=== PATIENT | male | born 1960 | race Caucasian/White ===

== ENCOUNTER 2017-06-18 08:00 | Outpatient (CLI) | payer MEDICAID ==
[2017-06-18 18:50] LABS: BASOPHILS # (AUTO) 0.1 10^3/uL (0.0-0.1); BASOPHILS % (AUTO) 0.8 %; EOSINOPHILS # (AUTO) 0.2 10^3/uL (0.0-0.7); EOSINOPHILS % (AUTO) 2.6 %; HGB - HEMOGLOBIN 15.3 g/dL (14.0-18.0); LYMPHOCYTES # (AUTO) 1.8 10^3/uL (1.5-3.5); LYMPHOCYTES % (AUTO) 24.5 %; MEAN CORPUSCULAR HEMOGLOBIN 30.1 pg (27.0-31.0); MEAN CORPUSCULAR HGB CONC 34.1 g/dL (32.0-36.0); MEAN CORPUSCULAR VOLUME 88.3 fL (80.0-94.0); MEAN PLATELET VOLUME 9.8 fL (7.4-11.4); MONOCYTES # (AUTO) 0.5 10^3/uL (0.0-1.0); NEUTROPHILS # (AUTO) 4.8 10^3/uL (1.5-6.6); NEUTROPHILS % (AUTO) 65.1 %; PLT - PLATELET COUNT 211 10^3/uL (130-450); RED BLOOD COUNT 5.06 10^6/uL (4.70-6.10); RED CELL DISTRIBUTION WIDTH 12.9 % (12.0-15.0); WHITE BLOOD COUNT 7.3 x10^3/uL (4.8-10.8)
[2017-06-18 19:04] LABS: THYROID STIMULATING HORMONE 10.76 uIU/mL (0.34-5.60)
[2017-06-18 19:06] LABS: ALBUMIN 4.4 g/dL (3.2-5.5); ALBUMIN/GLOBULIN RATIO 1.5 (1.0-2.2); ALKALINE PHOSPHATASE 40 IU/L (42-121); ALT ALANINE AMINOTRANSFERASE 15 IU/L (10-60); AST ASPARTATE AMINOTRANSFERASE 17 IU/L (10-42); BILIRUBIN,TOTAL 0.6 mg/dL (0.2-1.0); BUN - BLOOD UREA NITROGEN 16 mg/dL (6-20); CALCIUM 9.1 mg/dL (8.5-10.3); CARBON DIOXIDE - CO2 28 mmol/L (21-32); CHLORIDE 103 mmol/L (101-111); CHOL/HDL RATIO 6.5 (<5.0); CHOLESTEROL 216 mg/dL; GFR - MDRD 77 (>89); GLUCOSE 88 mg/dL (70-100); HDL CHOLESTEROL 33 mg/dL; LDL CHOLESTEROL,CALCULATED 125 mg/dL; LDL/HDL RATIO 3.8 (<3.6); SODIUM 136 mmol/L (135-145); TOTAL PROTEIN 7.3 g/dL (6.7-8.2); VLDL CHOLESTEROL 58 mg/dL
[2017-06-18 20:39] LABS: FREE T4 (FREE THYROXINE) 0.66 ng/dL (0.58-1.64)
== END 2017-06-18 08:01 | disposition home or self-care (01) ==
LOC: LAB.S 08:00
PROVIDERS: ATTEND Nurse Practitioner Family
DX: R53.83 Other fatigue (principal); Z13.220 Encounter for screening for lipoid disorders; Z12.5 Encounter for screening for malignant neoplasm of prostate
CPT/HCPCS: 36415; 80050; 80061; 83721; 84153; 84439

== ENCOUNTER 2018-09-03 09:31 | Emergency (ER) | payer MEDICAID ==
[2018-09-03] MEDS ORDERED: SODIUM CHLORIDE 0.9% 1,000 ML IV ONE (10:35)
--- NOTE | 2018-09-03 10:39 | ED Physician Documentation ---
PD HPI FEVER - Stated complaint Stated Complaint: FEVER/WEIGHT LOSS - Chief complaint Chief Complaint: General - History obtained from History obtained from: Patient, Family - History of Present Illness Timing - onset: How many weeks ago (2) Timing duration: Weeks (2) Timing details: Gradual onset, Still present Associated symptoms: Chills, Sweats, Dry cough Contributing factors: No: Sick contact, Travel, Immunocompromised Similar symptoms before: Has not had sx before Recently seen: Not recently seen - Additional information Additional information: Previously well 57-year-old male has developed fever and sweats over the past 2 weeks. He describes nightly fever and drenching sweats. He has fatigue when he returns home from work he is well during the day and he does not have other specific symptoms. He denies any urinary symptoms he denies any shortness of breath he does have a slight cough which is nonproductive. He has lost 15lbs in 2 weeks. Review of Systems Constitutional: reports: Fever, Chills, Fatigue, Sweats Eyes: denies: Decreased vision Ears: denies: Ear pain Nose: denies: Rhinorrhea / runny nose, Congestion Throat: denies: Sore throat Cardiac: denies: Chest pain / pressure, Palpitations Respiratory: reports: Cough. denies: Dyspnea GI: denies: Abdominal Pain, Nausea, Vomiting, Constipation, Diarrhea : denies: Dysuria, Frequency Skin: denies: Rash Musculoskeletal: denies: Neck pain, Back pain, Extremity pain Neurologic: denies: Generalized weakness, Focal weakness, Numbness, Difficulty speaking PD PAST MEDICAL HISTORY - Present Medications Home Medications: Ambulatory Orders Medication Instructions Recorded Confirmed Azithromycin [Zithromax] 250 mg PO DAILY #6 tablet 09/03/18 - Allergies Allergies/Adverse Reactions: Allergies Allergy/AdvReac Type Severity Reaction Status Date / Time No Known Drug Allergies Allergy Verified 09/03/18 09:41 PD ED PE NORMAL - Vitals Vital signs reviewed: Yes (hypertensive ) - General General: Alert and oriented X 3, No acute distress, Well developed/nourished - HEENT HEENT: Atraumatic, PERRL, EOMI - Neck Neck: Supple, no meningeal sign, No bony TTP - Cardiac Cardiac: RRR, No murmur - Respiratory Respiratory: No respiratory distress, Clear bilaterally - Abdomen Abdomen: Soft, Non tender - Back Back: No CVA TTP, No spinal TTP - Derm Derm: Normal color, Warm and dry, No rash - Extremities Extremities: No deformity, No edema - Neuro Neuro: Alert and oriented X 3, 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, No motor deficit, No sensory deficit, Normal speech Motor: Obeys Commands Verbal: Oriented - Psych Psych: Normal mood, Normal affect Results - Vitals Vitals: Vital Signs - 24 hr 09/03/18 09:36 Temperature 37.2 C Heart Rate 81 Respiratory 14 Rate Blood Pressure 118/83 H O2 Saturation 98 Oxygen O2 Source Room air - Labs Labs: Laboratory Tests 09/03/18 09/03/18 09/03/18 10:46 10:46 10:46 WBC 11.5 H RBC 4.32 L Hgb 12.6 L Hct 38.9 L MCV 90.0 MCH 29.2 MCHC 32.4 RDW 12.4 Plt Count 327 MPV 9.4 Neut # (Auto) 8.2 H Lymph # (Auto) 1.5 [place] # (Auto) 1.2 H Eos # (Auto) 0.4 Baso # (Auto) 0.1 Absolute Nucleated RBC 0.00 Nucleated RBC % 0.0 Sodium 138 Potassium 4.6 Chloride 101 Carbon Dioxide 25 Anion Gap 12.0 BUN 22 H Creatinine 1.2 Estimated GFR (MDRD) 62 L Glucose 108 H Lactic Acid Calcium 9.0 Total Bilirubin 0.5 AST 27 ALT 25 Alkaline Phosphatase 46 Troponin I < 0.04 Total Protein 7.3 Albumin 3.4 Globulin 3.9 Albumin/Globulin Ratio 0.9 L Lipase 45 Urine Color Urine Clarity Urine pH Ur Specific [place] Urine Protein Urine Glucose (UA) Urine Ketones Urine Occult Blood Urine Nitrite Urine Bilirubin Urine Urobilinogen Ur Leukocyte Esterase Ur Microscopic Review Urine Culture Comments 09/03/18 09/03/18 11:00 11:45 WBC RBC Hgb Hct MCV MCH MCHC RDW Plt Count MPV Neut # (Auto) Lymph # (Auto) [place] # (Auto) Eos # (Auto) Baso # (Auto) Absolute Nucleated RBC Nucleated RBC % Sodium Potassium Chloride Carbon Dioxide Anion Gap BUN Creatinine Estimated GFR (MDRD) Glucose Lactic Acid 0.8 Calcium Total Bilirubin AST ALT Alkaline Phosphatase Troponin I Total Protein Albumin Globulin Albumin/Globulin Ratio Lipase Urine Color YELLOW Urine Clarity CLEAR Urine pH 5.5 Ur Specific [place] 1.010 Urine Protein NEGATIVE Urine Glucose (UA) NEGATIVE Urine Ketones NEGATIVE Urine Occult Blood NEGATIVE Urine Nitrite NEGATIVE Urine Bilirubin NEGATIVE Urine Urobilinogen 0.2 (NORMAL) Ur Leukocyte Esterase NEGATIVE Ur Microscopic Review NOT INDICATED Urine Culture Comments NOT INDICATED - Rads (name of study) chest Radiology: Prelim report reviewed (Impression: Left upper lobe and left lingular infiltrate.), EMP read indepedently, See rad report ct sinus Radiology: Prelim report reviewed (Impression: Normal sinus CT no sinusitis.), EMP read indepedently, See rad report Procedures - IVC sono (time) 1025 Bedside IVC sono: IVC measures (cm) (1.18), IVC collapsed c insp (cm) (complete), Dehydration (est 1 l iter deficit) PD MEDICAL DECISION MAKING - ED course Complexity details: reviewed results, re-evaluated patient, considered differential, d/w patient, d/w family ED course: 57-year-old male with a two-week history of fever and sweats with mild cough has pneumonia on his chest x-ray. He is administered Rocephin intravenously and will place him on some azithromycin. Departure - Departure Disposition: 01 Home, Self Care Clinical Impression: Pneumonia Qualifiers: Pneumonia type: due to unspecified organism Laterality: left Lung location: upper lobe of lung Qualified Code(s): J18.1 - Lobar pneumonia, unspecified organism Instructions: ED Pneumonia Adult Follow-Up: [facility] [Provider Group] Prescriptions: Azithromycin [Zithromax] 250 mg PO DAILY #6 tablet
[2018-09-03 10:58] LABS: BASOPHILS # (AUTO) 0.1 10^3/uL (0.0-0.1); BASOPHILS % (AUTO) 0.4 %; EOSINOPHILS # (AUTO) 0.4 10^3/uL (0.0-0.7); HGB - HEMOGLOBIN 12.6 g/dL (14.0-18.0); LYMPHOCYTES # (AUTO) 1.5 10^3/uL (1.5-3.5); MEAN CORPUSCULAR HEMOGLOBIN 29.2 pg (27.0-31.0); MEAN CORPUSCULAR HGB CONC 32.4 g/dL (32.0-36.0); MEAN PLATELET VOLUME 9.4 fL (7.4-11.4); MONOCYTES # (AUTO) 1.2 10^3/uL (0.0-1.0); MONOCYTES % (AUTO) 10.8 %; NEUTROPHILS # (AUTO) 8.2 10^3/uL (1.5-6.6); NEUTROPHILS % (AUTO) 71.8 %; PLT - PLATELET COUNT 327 10^3/uL (130-450); RED BLOOD COUNT 4.32 10^6/uL (4.70-6.10); RED CELL DISTRIBUTION WIDTH 12.4 % (12.0-15.0); WHITE BLOOD COUNT 11.5 x10^3/uL (4.8-10.8)
[2018-09-03 11:10] LABS: ALBUMIN 3.4 g/dL (3.2-5.5); ALBUMIN/GLOBULIN RATIO 0.9 (1.0-2.2); BILIRUBIN,TOTAL 0.5 mg/dL (0.2-1.0); CREATININE 1.2 mg/dL (0.6-1.2); TOTAL PROTEIN 7.3 g/dL (6.7-8.2)
--- NOTE | 2018-09-03 11:17 | XRAY Report ---
Reason: fever night sweats cough Procedure Date: 09/03/2018 Accession Number: [id number] / [id number] Procedure: XR - Chest 2 View X-Ray CPT Code: 00596 FULL RESULT: EXAM: CHEST RADIOGRAPHY EXAM DATE: 09/03/2018 11:02 AM. CLINICAL HISTORY: Fever night sweats cough. COMPARISON: None. TECHNIQUE: 2 views. FINDINGS: Lungs/Pleura: Left upper lobe and left lingular infiltrate.. No pleural effusion. No pneumothorax. Normal volumes. Mediastinum: Heart and mediastinal contours are unremarkable. Other: None. IMPRESSION: Left upper lobe and left lingular infiltrate. RADIA
[2018-09-03] MEDS ORDERED: cefTRIAXone 1 GM in SODIUM CHLORIDE 0.9% MINIBAG 100 ML IV STA (11:26)
[2018-09-03 11:45] LABS: BILIRUBIN,URINE NEGATIVE (NEGATIVE); GLUCOSE, URINE (UA) NEGATIVE (NEGATIVE); KETONES,URINE (UA) NEGATIVE (NEGATIVE); LEUKOCYTE ESTERASE, URINE NEGATIVE (NEGATIVE); NITRITE,URINE NEGATIVE (NEGATIVE); OCCULT BLOOD,URINE NEGATIVE (NEGATIVE); PH,URINE 5.5 PH (5.0-7.5); PROTEIN,URINE NEGATIVE (NEGATIVE); UROBILINOGEN,URINE 0.2 (NORMAL) E.U./dL (NORMAL)
[2018-09-03 11:46] LABS: CLARITY,URINE CLEAR (CLEAR)
--- NOTE | 2018-09-03 11:46 | CT Report ---
Reason: fever sweats cough persistent Procedure Date: 09/03/2018 Accession Number: [id number] / [id number] Procedure: CT - Sinuses CPT Code: FULL RESULT: EXAM: CT SINUS EXAM DATE: 09/03/2018 10:55 AM. HISTORY: Fever sweats cough persistent. COMPARISONS: None. TECHNIQUE: Routine multi-axial CT imaging performed through the sinuses. Iodinated IV contrast: None. Reconstructions: Multiplanar reformats. In accordance with CT protocol optimization, one or more of the following dose reduction techniques were utilized for this exam: automated exposure control, adjustment of mA and/or KV based on patient size, or use of iterative reconstructive technique. FINDINGS: RIGHT Frontal: Normal. Ethmoid: Normal. Maxillary: Normal. Sphenoid: Normal. Drainage Pathways: The frontal recess, ostiomeatal complex and sphenoethmoidal recess are patent and normal. LEFT Frontal: Normal. Ethmoid: Normal. Maxillary: Normal. Sphenoid: Normal. Drainage Pathways: The frontal recess, ostiomeatal complex and sphenoethmoidal recess are patent and normal. Nasal Cavity: Normal. No mass or significant anatomic abnormality evident. Osseous Structures: Bilateral sarah bullosa. Orbits: Unremarkable. Other: None. IMPRESSION: Normal Sinus CT. No sinusitis. RADIA
[2018-09-03 12:52] VITALS: BP 120/74
== END 2018-09-03 12:52 | disposition home or self-care (01) ==
LOC: ED 09:31
DX: J18.1 Lobar pneumonia, unspecified organism (principal)
CPT/HCPCS: 36415; 70486; 71046; 80053; 81001; 81003; 83605; 83690; 84484; 85025; 87040; 87086; 96361; 96365; 99283

== ENCOUNTER 2019-04-08 08:53 | Outpatient (CLI) | payer MEDICAID ==
[2019-04-08 17:32] LABS: BASOPHILS # (AUTO) 0.1 10^3/uL (0.0-0.1); BASOPHILS % (AUTO) 0.9 %; EOSINOPHILS # (AUTO) 0.3 10^3/uL (0.0-0.7); EOSINOPHILS % (AUTO) 4.4 %; HGB - HEMOGLOBIN 14.1 g/dL (14.0-18.0); LYMPHOCYTES # (AUTO) 1.9 10^3/uL (1.5-3.5); LYMPHOCYTES % (AUTO) 27.1 %; MEAN CORPUSCULAR HEMOGLOBIN 29.3 pg (27.0-31.0); MEAN CORPUSCULAR HGB CONC 31.5 g/dL (32.0-36.0); MEAN CORPUSCULAR VOLUME 92.7 fL (80.0-94.0); MEAN PLATELET VOLUME 11.4 fL (7.4-11.4); MONOCYTES # (AUTO) 0.5 10^3/uL (0.0-1.0); MONOCYTES % (AUTO) 7.7 %; NEUTROPHILS # (AUTO) 4.1 10^3/uL (1.5-6.6); NEUTROPHILS % (AUTO) 59.6 %; PLT - PLATELET COUNT 214 10^3/uL (130-450); RED BLOOD COUNT 4.82 10^6/uL (4.70-6.10); RED CELL DISTRIBUTION WIDTH 12.4 % (12.0-15.0); WHITE BLOOD COUNT 6.9 x10^3/uL (4.8-10.8)
[2019-04-08 17:59] LABS: HB2 TOTAL 13.9 g/dL; HEMOGLOBIN A1C 0.54 g/dL; HEMOGLOBIN A1C % 5.7 % (4.6-6.2)
[2019-04-08 18:00] LABS: ALBUMIN 4.2 g/dL (3.2-5.5); ALBUMIN/GLOBULIN RATIO 1.6 (1.0-2.2); BILIRUBIN,TOTAL 0.5 mg/dL (0.2-1.0); TOTAL PROTEIN 6.8 g/dL (6.7-8.2)
[2019-04-08 18:57] LABS: FREE T4 (FREE THYROXINE) 0.81 ng/dL (0.58-1.64)
== END 2019-04-08 08:54 | disposition home or self-care (01) ==
LOC: LAB.S 08:53
PROVIDERS: ATTEND Internal Medicine
DX: G62.9 Polyneuropathy, unspecified (principal); E03.9 Hypothyroidism, unspecified
CPT/HCPCS: 36415; 80050; 82607; 83036; 84439

== ENCOUNTER 2020-03-10 11:48 | Outpatient (CLI) | payer MEDICAID | END 2020-03-10 11:49 | disposition home or self-care (01) | LOC: COV 11:48 | PROVIDERS: ATTEND Family Medicine | DX: R50.9 Fever, unspecified (principal); M79.10 Myalgia, unspecified site; R53.83 Other fatigue; Z20.822 Contact with and (suspected) exposure to COVID-19 ==

== ENCOUNTER 2020-03-22 12:06 | Inpatient (IN) | payer MEDICAID ==
--- NOTE | 2020-03-22 12:37 | ED Physician Documentation ---
PD HPI ABD PAIN - Stated complaint Stated Complaint: ABD PX - Chief complaint Chief Complaint: Abd Pain - History obtained from History obtained from: Patient - Additional information Additional information: 59-year-old gentleman with history of hypothyroidism, otherwise quite healthy. Has never had a colonoscopy. He has had about 2 weeks of left lower quadrant pain feeling like he might be constipated. He has tried a number of at home reliefs including castor oil, other laxatives and even an enema without any relief. He is at this point has watery small stools but persistent pressure. Has been on and off nauseous and thinks he had a fever a week ago. No history of abdominal surgeries. No sick contacts. No respiratory complaints. Review of Systems Ten Systems: 10 systems reviewed and negative Constitutional: reports: Fever Cardiac: denies: Chest pain / pressure, Palpitations Respiratory: denies: Dyspnea, Cough PD PAST MEDICAL HISTORY - Present Medications Home Medications: Ambulatory Orders Medication Instructions Recorded Confirmed No Known Home Medications 03/22/20 03/22/20 - Allergies Allergies/Adverse Reactions: Allergies Allergy/AdvReac Type Severity Reaction Status Date / Time No Known Drug Allergies Allergy Verified 03/22/20 12:10 - Social History Does the pt smoke?: No Smoking Status: Never smoker PD ED PE NORMAL - Vitals Vital signs reviewed: Yes - General General: Alert and oriented X 3, No acute distress - HEENT HEENT: PERRL, EOMI - Neck Neck: Supple, no meningeal sign, No bony TTP - Cardiac Cardiac: RRR, No murmur - Respiratory Respiratory: No respiratory distress, Clear bilaterally - Abdomen Abdomen: Normal bowel sounds, Soft, Other (Focal tenderness in the left lower quadrant without guarding or rebound.) - Rectal Rectal: Other (Minimal stool in the vault, brown, nontender, prostate not enlarged) - Derm Derm: Normal color, Warm and dry - Extremities Extremities: No edema, No calf tenderness / cord - Neuro Neuro: Alert and oriented X 3, Normal speech Results - Vitals Vitals: Vital Signs - 24 hr 03/22/20 03/22/20 12:08 14:43 Temperature 36.4 C L Heart Rate 84 64 Respiratory 16 16 Rate Blood Pressure 129/84 H 130/75 O2 Saturation 99 98 Oxygen O2 Source Room air - Labs Labs: Microbiology 03/22/20 12:30 Occult Blood - Final Stool Laboratory Tests 03/22/20 03/22/20 03/22/20 12:25 12:45 12:45 WBC 14.7 H RBC 4.59 L Hgb 13.8 L Hct 41.5 L MCV 90.4 MCH 30.1 MCHC 33.3 RDW 11.5 L Plt Count 332 MPV 10.2 Neut # (Auto) 11.8 H Lymph # (Auto) 1.5 [place] # (Auto) 1.2 H Eos # (Auto) 0.1 Baso # (Auto) 0.1 Absolute Nucleated RBC 0.00 Nucleated RBC % 0.0 Sodium 137 Potassium 4.4 Chloride 99 L Carbon Dioxide 24 Anion Gap 14.0 H BUN 18 Creatinine 1.1 Estimated GFR (MDRD) 68 L Glucose 101 H Calcium 9.6 Total Bilirubin 0.8 AST 13 ALT 10 Alkaline Phosphatase 60 Total Protein 8.0 Albumin 3.9 Globulin 4.1 Albumin/Globulin Ratio 1.0 Lipase 28 TSH Urine Color YELLOW Urine Clarity CLEAR Urine pH 5.5 Ur Specific [place] 1.015 Urine Protein NEGATIVE Urine Glucose (UA) NEGATIVE Urine Ketones NEGATIVE Urine Occult Blood TRACE-LYSE Urine Nitrite NEGATIVE Urine Bilirubin NEGATIVE Urine Urobilinogen 0.2 (NORMAL) Ur Leukocyte Esterase NEGATIVE Ur Microscopic Review NOT INDICATED Urine Culture Comments NOT INDICATED 03/22/20 12:45 WBC RBC Hgb Hct MCV MCH MCHC RDW Plt Count MPV Neut # (Auto) Lymph # (Auto) [place] # (Auto) Eos # (Auto) Baso # (Auto) Absolute Nucleated RBC Nucleated RBC % Sodium Potassium Chloride Carbon Dioxide Anion Gap BUN Creatinine Estimated GFR (MDRD) Glucose Calcium Total Bilirubin AST ALT Alkaline Phosphatase Total Protein Albumin Globulin Albumin/Globulin Ratio Lipase TSH 11.82 H Urine Color Urine Clarity Urine pH Ur Specific [place] Urine Protein Urine Glucose (UA) Urine Ketones Urine Occult Blood Urine Nitrite Urine Bilirubin Urine Urobilinogen Ur Leukocyte Esterase Ur Microscopic Review Urine Culture Comments PD MEDICAL DECISION MAKING - ED course ED course: [employer] respiratory panel ordered to rapidly test specifically for COVID-19 in this patient who is expected to be hospitalized Patient constipation for 2 weeks, some tenderness in left lower quadrant. No stool in rectal vault on exam. CT showing 5.6 cm diverticular abscess. I spoke with the radiologist here, Dr. Martinez about whether this would be amenable to interventional drainage and he felt that there was not a good window for that. Dr. Colmenares our surgeon is seeing him. He received some Zosyn in the department. Departure - Departure Disposition: 66 [facility] DC/Xfer Clinical Impression: Diverticular disease of intestine with perforation and abscess Condition: Stable
[2020-03-22 12:47] LABS: BILIRUBIN,URINE NEGATIVE (NEGATIVE); GLUCOSE, URINE (UA) NEGATIVE (NEGATIVE); KETONES,URINE (UA) NEGATIVE (NEGATIVE); LEUKOCYTE ESTERASE, URINE NEGATIVE (NEGATIVE); NITRITE,URINE NEGATIVE (NEGATIVE); OCCULT BLOOD,URINE TRACE-LYSE (NEGATIVE); PH,URINE 5.5 PH (5.0-7.5); PROTEIN,URINE NEGATIVE (NEGATIVE); UROBILINOGEN,URINE 0.2 (NORMAL) E.U./dL (NORMAL)
[2020-03-22 12:49] LABS: CLARITY,URINE CLEAR (CLEAR)
[2020-03-22 12:50] LABS: BASOPHILS # (AUTO) 0.1 10^3/uL (0.0-0.1); BASOPHILS % (AUTO) 0.5 %; EOSINOPHILS # (AUTO) 0.1 10^3/uL (0.0-0.7); EOSINOPHILS % (AUTO) 0.6 %; HGB - HEMOGLOBIN 13.8 g/dL (14.0-18.0); LYMPHOCYTES # (AUTO) 1.5 10^3/uL (1.5-3.5); LYMPHOCYTES % (AUTO) 10.4 %; MEAN CORPUSCULAR HEMOGLOBIN 30.1 pg (27.0-31.0); MEAN CORPUSCULAR HGB CONC 33.3 g/dL (32.0-36.0); MEAN CORPUSCULAR VOLUME 90.4 fL (80.0-94.0); MEAN PLATELET VOLUME 10.2 fL (7.4-11.4); MONOCYTES # (AUTO) 1.2 10^3/uL (0.0-1.0); NEUTROPHILS # (AUTO) 11.8 10^3/uL (1.5-6.6); NEUTROPHILS % (AUTO) 80.2 %; PLT - PLATELET COUNT 332 10^3/uL (130-450); RED BLOOD COUNT 4.59 10^6/uL (4.70-6.10); RED CELL DISTRIBUTION WIDTH 11.5 % (12.0-15.0); WHITE BLOOD COUNT 14.7 x10^3/uL (4.8-10.8)
[2020-03-22] MEDS ORDERED: IOVERSOL 320 100 ML VIAL IVP ONE ×2 (12:54→14:19)
[2020-03-22] MEDS ORDERED: IOVERSOL 320 50 ML VIAL ONE (12:54)
[2020-03-22 13:12] LABS: ALBUMIN 3.9 g/dL (3.2-5.5); BILIRUBIN,TOTAL 0.8 mg/dL (0.2-1.0); CALCIUM 9.6 mg/dL (8.5-10.3); CREATININE 1.1 mg/dL (0.6-1.2)
[2020-03-22] MEDS ORDERED: PIPERACILLIN/TAZOBACTAM 4.5 GM in SODIUM CHLORIDE 0.9% MINIBAG 100 ML IV STA (14:17)
[2020-03-22] MEDS ORDERED: IOVERSOL 320 50 ML VIAL PO ONE (14:18)
--- NOTE | 2020-03-22 14:26 | CT Report ---
PROCEDURE: Abdomen/Pelvis W INDICATIONS: IV and PO LLq pain CONTRAST: IV CONTRAST: Optiray 320 ml: 100 PO CONTRAST: Optiray 320 ml50 TECHNIQUE: After the administration of intravenous and oral contrast, 5 mm thick sections acquired from the diap hragms to the symphysis. 5 mm thick coronal and sagittal reformats were acquired. For radiation dos e reduction, the following was used: automated exposure control, adjustment of mA and/or kV accordin g to patient size. COMPARISON: None. FINDINGS: Image quality: Excellent. ABDOMEN: Lung bases: Lung bases are clear. Heart size is normal. Solid organs: Liver and spleen are normal in size and enhancement. Small hepatic cyst noted. Punctat e calcification compatible sequela prior granulomatous disease noted in the right lobe of liver. Gall bladder is within normal limits. Biliary system is non dilated. Pancreas enhances normally. No adr enal nodules. Kidneys demonstrate normal size and enhancement, without hydronephrosis. I millimeter maximum calcification seen adjacent to the distal aspect of the right ureter may represent nonobstruc ting stone or phlebolith. Peritoneum and bowel: The appendix is normal. Scattered diverticuli noted in the left colon and sigmo id colon. Inflammatory changes and circumferential wall thickening involving the mid sigmoid colon co mpatible with diverticulitis. There is a 5.6 cm diameter fluid collection with partial peripheral enh ancement adjacent to the sigmoid colon in the region of diverticulitis compatible with early peridive rticular abscess. Nodes and vessels: No retroperitoneal or mesenteric adenopathy by size criteria. Aorta and inferior vena cava are normal in size. Miscellaneous: No ventral hernias. PELVIS: Genitourinary: Bladder wall thickness is normal. Miscellaneous: No inguinal hernias or adenopathy. Bones: No suspicious bony lesions. No vertebral body compression fractures. Spine degenerative disc disease and facet arthropathy are noted. IMPRESSION: Sigmoid colon diverticulitis with 5.6 cm peridiverticular abscess. Reviewed by: Radha Sanz MD, PhD on 03/22/2020 1:24 PM [facility] Approved by: Radha Sanz MD, PhD on 03/22/2020 1:24 PM [facility] Station ID: [id number]
[2020-03-22 15:56] LABS: C. PNEUMONIAE- RESP PCR PANEL NOT DETECTED
--- NOTE | 2020-03-22 16:30 | HISTORY & PHYSICAL EXAMINATION ---
HPI - Admitted From Admitted from: ED - History Obtained From Records Reviewed: Other (Physicians notes) History obtained from: Patient Exam limitations: No limitations - History of Present Illness Severity at the worst: reports: Mild Pain Quality: reports: Aching Context-Pain started w/: reports: Rest Timing: reports: Gradual onset Duration: reports: Days: (About 14) Improved with: reports: Home medication Worsened by: reports: Nothing HPI Comment/Other: 59-year-old gentleman with history of hypothyroidism, otherwise quite healthy. Has never had a colonoscopy. He has had about 2 weeks of left lower quadrant pain feeling like he might be constipated. He has tried a number of at home reliefs including castor oil, other laxatives and even an enema without any relief. He is at this point has watery small stools but persistent pressure. Has been on and off nauseous and thinks he had a fever a week ago. No history of abdominal surgeries. No sick contacts. No respiratory complaints. Says he doesn't feel "terrible" but is definitely not "myself". He has never been diagnosed with diverticulosis or diverticulitis. He has not had a similar episode in the past. He has known family history of colon cancer or inflammatory bowel disease. PMH/PSH - Past Medical History Respiratory: positive: Pneumonia Endocrine/Autoimmune: positive: HyPOthyroidism Social & Family Hx - Social History Does the pt smoke?: No Smoking Status: Never smoker Does the pt drink ETOH?: Yes Does the pt have substance abuse?: No Meds/Allgy - Home Medications Home Medications: Ambulatory Orders Medication Instructions Recorded Confirmed Levothyroxine [Synthroid] 75 mcg PO DAILY 03/22/20 03/22/20 - Allergies Allergies/Adverse Reactions: Allergies Allergy/AdvReac Type Severity Reaction Status Date / Time No Known Drug Allergies Allergy Verified 03/22/20 12:10 Review of Systems - Constitutional Constitutional: reports: Malaise (Mild), Poor appetite. denies: Fatigue, Fever, Chills, Weakness - Eyes Eyes: denies: Pain, Irritation - Ears, Nose & Throat Ears, Nose & Throat: denies: Tinnitus, Vertigo - Cardiovascular Cariovascular: denies: Irregular heart rate, Palpitations, Chest pain, Edema, Lightheadedness - Respiratory Respiratory: denies: Cough, Sputum production, Wheezing - Gastrointestinal Gastrointestinal: reports: Abdominal pain, Constipation, Diarrhea, Change in bowel habits, Nausea. denies: Abdominal distention, Rectal bleeding, Black stools, Bloody stools, Vomiting - Genitourinary Genitourinary: denies: Dysuria, Frequency - Musculoskeletal Musculoskeletal: reports: Stiffness - Integumentary Integumentary: denies: Rash - Neurological Neurological: denies: Focal weakness - Hematologic/Lymphatic Hematologic/Lymphatic: denies: Anemia, Bruising - All Other Systems All Other Systems: reports: Reviewed and negative Exam - Vital Signs Reviewed Vital Signs: Yes Vital Signs: Vital Signs x48h Temp Pulse Resp BP Pulse Ox 03/22/20 16:07 65 16 137/85 H 100 03/22/20 14:43 64 16 130/75 98 03/22/20 12:08 36.4 C L 84 16 129/84 H 99 - Physical Exam General Appearance: positive: No acute distress, Alert Eyes Bilateral: positive: Normal inspection, PERRL, EOMI ENT: positive: ENT inspection nml, Pharynx nml, No signs of dehydration Neck: positive: Nml inspection, Thyroid nml, No JVD Respiratory: positive: Chest non-tender, No respiratory distress, Breath sounds nml Cardiovascular: positive: Regular rate & rhythm, No murmur Peripheral Pulses: positive: 1+ Abdomen: positive: Nml bowel sounds, Tenderness (Mild tenderness in the suprapubic region). negative: Guarding, Rebound Back: negative: CVA tenderness (R), CVA tenderness (L) Skin: positive: Color nml Extremities: positive: Non-tender, Full ROM, Nml appearance Neurologic/Psychiatric: positive: Oriented x3 Results - Lab Results Fish Bones: 03/22/20 12:45 03/22/20 12:45 Other Lab Results: Lab Results x24hrs 03/22/20 03/22/20 03/22/20 Range/Units 14:40 12:45 12:45 WBC (4.8-10.8) x10^3/uL RBC (4.70-6.10) 10^6/uL Hgb (14.0-18.0) g/dL Hct (42.0-52.0) % MCV (80.0-94.0) fL MCH (27.0-31.0) pg MCHC (32.0-36.0) g/dL RDW (12.0-15.0) % Plt Count (130-450) 10^3/uL MPV (7.4-11.4) fL Neut # (Auto) (1.5-6.6) 10^3/uL Lymph # (Auto) (1.5-3.5) 10^3/uL [place] # (Auto) (0.0-1.0) 10^3/uL Eos # (Auto) (0.0-0.7) 10^3/uL Baso # (Auto) (0.0-0.1) 10^3/uL Absolute Nucleated RBC x10^3/uL Nucleated RBC % /100WBC Sodium 137 (135-145) mmol/L Potassium 4.4 (3.5-5.0) mmol/L Chloride 99 L (101-111) mmol/L Carbon Dioxide 24 (21-32) mmol/L Anion Gap 14.0 H (6-13) BUN 18 (6-20) mg/dL Creatinine 1.1 (0.6-1.2) mg/dL Estimated GFR (MDRD) 68 L (>89) Glucose 101 H (70-100) mg/dL Calcium 9.6 (8.5-10.3) mg/dL Total Bilirubin 0.8 (0.2-1.0) mg/dL AST 13 (10-42) IU/L ALT 10 (10-60) IU/L Alkaline Phosphatase 60 (42-121) IU/L Total Protein 8.0 (6.7-8.2) g/dL Albumin 3.9 (3.2-5.5) g/dL Globulin 4.1 (2.1-4.2) g/dL Albumin/Globulin Ratio 1.0 (1.0-2.2) Lipase 28 (22-51) U/L TSH 11.82 H (0.34-5.60) uIU/mL Urine Color Urine Clarity (CLEAR) Urine pH (5.0-7.5) PH Ur Specific [place] (1.002-1.030) Urine Protein (NEGATIVE) mg/dL Urine Glucose (UA) (NEGATIVE) mg/dL Urine Ketones (NEGATIVE) mg/dL Urine Occult Blood (NEGATIVE) Urine Nitrite (NEGATIVE) Urine Bilirubin (NEGATIVE) Urine Urobilinogen (NORMAL) E.U./dL Ur Leukocyte Esterase (NEGATIVE) Ur Microscopic Review Urine Culture Comments Nasal Adenovirus (PCR) NOT DETECTED Nasal B. parapertussis DNA (PCR) NOT DETECTED Nasal Coronavir 229E PCR NOT DETECTED Nasal Coronavir HKU1 PCR NOT DETECTED Nasal Coronavir NL63 PCR NOT DETECTED Nasal Coronavir OC43 PCR NOT DETECTED Nasal Enterovir/Rhinovir PCR NOT DETECTED Nasal Influenza B PCR NOT DETECTED Nasal Influenza A PCR NOT DETECTED Nasal Parainfluen 1 PCR NOT DETECTED Nasal Parainfluen 2 PCR NOT DETECTED Nasal Parainfluen 3 PCR NOT DETECTED Nasal Parainfluen 4 PCR NOT DETECTED Nasal RSV (PCR) NOT DETECTED Nasal B.pertussis DNA PCR NOT DETECTED Nasal C.pneumoniae (PCR) NOT DETECTED [place] Human Metapneumo PCR NOT DETECTED Nasal M.pneumoniae (PCR) NOT DETECTED Nasal SARS-CoV-2 (PCR) NOT DETECTED 03/22/20 03/22/20 Range/Units 12:45 12:25 WBC 14.7 H (4.8-10.8) x10^3/uL RBC 4.59 L (4.70-6.10) 10^6/uL Hgb 13.8 L (14.0-18.0) g/dL Hct 41.5 L (42.0-52.0) % MCV 90.4 (80.0-94.0) fL MCH 30.1 (27.0-31.0) pg MCHC 33.3 (32.0-36.0) g/dL RDW 11.5 L (12.0-15.0) % Plt Count 332 (130-450) 10^3/uL MPV 10.2 (7.4-11.4) fL Neut # (Auto) 11.8 H (1.5-6.6) 10^3/uL Lymph # (Auto) 1.5 (1.5-3.5) 10^3/uL [place] # (Auto) 1.2 H (0.0-1.0) 10^3/uL Eos # (Auto) 0.1 (0.0-0.7) 10^3/uL Baso # (Auto) 0.1 (0.0-0.1) 10^3/uL Absolute Nucleated RBC 0.00 x10^3/uL Nucleated RBC % 0.0 /100WBC Sodium (135-145) mmol/L Potassium (3.5-5.0) mmol/L Chloride (101-111) mmol/L Carbon Dioxide (21-32) mmol/L Anion Gap (6-13) BUN (6-20) mg/dL Creatinine (0.6-1.2) mg/dL Estimated GFR (MDRD) (>89) Glucose (70-100) mg/dL Calcium (8.5-10.3) mg/dL Total Bilirubin (0.2-1.0) mg/dL AST (10-42) IU/L ALT (10-60) IU/L Alkaline Phosphatase (42-121) IU/L Total Protein (6.7-8.2) g/dL Albumin (3.2-5.5) g/dL Globulin (2.1-4.2) g/dL Albumin/Globulin Ratio (1.0-2.2) Lipase (22-51) U/L TSH (0.34-5.60) uIU/mL Urine Color YELLOW Urine Clarity CLEAR (CLEAR) Urine pH 5.5 (5.0-7.5) PH Ur Specific [place] 1.015 (1.002-1.030) Urine Protein NEGATIVE (NEGATIVE) mg/dL Urine Glucose (UA) NEGATIVE (NEGATIVE) mg/dL Urine Ketones NEGATIVE (NEGATIVE) mg/dL Urine Occult Blood TRACE-LYSE (NEGATIVE) Urine Nitrite NEGATIVE (NEGATIVE) Urine Bilirubin NEGATIVE (NEGATIVE) Urine Urobilinogen 0.2 (NORMAL) (NORMAL) E.U./dL Ur Leukocyte Esterase NEGATIVE (NEGATIVE) Ur Microscopic Review NOT INDICATED Urine Culture Comments NOT INDICATED Nasal Adenovirus (PCR) Nasal B. parapertussis DNA (PCR) Nasal Coronavir 229E PCR Nasal Coronavir HKU1 PCR Nasal Coronavir NL63 PCR Nasal Coronavir OC43 PCR Nasal Enterovir/Rhinovir PCR Nasal Influenza B PCR Nasal Influenza A PCR Nasal Parainfluen 1 PCR Nasal Parainfluen 2 PCR Nasal Parainfluen 3 PCR Nasal Parainfluen 4 PCR Nasal RSV (PCR) Nasal B.pertussis DNA PCR Nasal C.pneumoniae (PCR) [place] Human Metapneumo PCR Nasal M.pneumoniae (PCR) Nasal SARS-CoV-2 (PCR) - Diagnostic Imaging Results Diagnostic Imaging Results: positive: Final report reviewed Diagnostic Imaging Results Comments: IMPRESSION: Sigmoid colon diverticulitis with 5.6 cm peridiverticular abscess. Reviewed by: Radha Sanz MD, PhD on 03/22/2020 1:24 PM [facility] Approved by: Radha Sanz MD, PhD on 03/22/2020 1:24 PM [facility] - Other Other Results/Comments: I discussed the CT with the radiologist. He reports this abscess is not amenable to image guided drainage as it is surround by loops of bowel Impression/Plan - Problem List Problem List: Diverticulitis with 5.2 cm diverticular abscess. As this abscess is not accessible by less invasive technique, I have recommended laparoscopy with drain placement and IV antibiotic therapy followed, in several weeks, by colonoscopy. We have discussed the risks and benefits of the procedure and the patient has expressed a desire to proceed.
--- NOTE | 2020-03-22 20:06 | ANESTHESIA ---
Pre-Anesthesia VS, & Labs - Diagnosis intra-abdominal abcess - Procedure diagnostic laparoscopy Vital Signs: Temp Pulse Resp BP Pulse Ox 36.4 C L 62 18 135/79 H 96 03/22/20 12:08 03/22/20 19:05 03/22/20 19:05 03/22/20 19:05 03/22/20 19:05 Height: 6 ft 3 in Weight (kg): 88.451 kg Body Mass Index: 24.3 BMI Classification: Healthy weight - NPO >8 hours - Lab Results Current Lab Results: Laboratory Tests 03/22/20 12:45: TSH 11.82 H 03/22/20 12:45: Sodium 137, Potassium 4.4, Chloride 99 L, Carbon Dioxide 24, Anion Gap 14.0 H, BUN 18, Creatinine 1.1, Estimated GFR (MDRD) 68 L, Glucose 101 H, Calcium 9.6, Total Bilirubin 0.8, AST 13, ALT 10, Alkaline Phosphatase 60, Total Protein 8.0, Albumin 3.9, Globulin 4.1, Albumin/Globulin Ratio 1.0, Lipase 28 03/22/20 12:45: WBC 14.7 H, RBC 4.59 L, Hgb 13.8 L, Hct 41.5 L, MCV 90.4, MCH 30.1, MCHC 33.3, RDW 11.5 L, Plt Count 332, MPV 10.2, Neut # (Auto) 11.8 H, Lymph # (Auto) 1.5, [place] # (Auto) 1.2 H, Eos # (Auto) 0.1, Baso # (Auto) 0.1, Absolute Nucleated RBC 0.00, Nucleated RBC % 0.0 Lab results reviewed: Yes Fish Bones: 03/22/20 12:45 03/22/20 12:45 Home Medications and Allergies Home Medications: Ambulatory Orders Levothyroxine [Synthroid] 75 mcg PO DAILY 03/22/20 Levothyroxine [Synthroid] 75 mcg PO DAILY 03/22/20 Allergies/Adverse Reactions: Allergies Allergy/AdvReac Type Severity Reaction Status Date / Time No Known Drug Allergies Allergy Verified 03/22/20 12:10 Anes History & Medical History - Anesthetic History Anesthesia Complications: reports: No previous complications - Medical History Cardiovascular: reports: None Pulmonary: reports: Pneumonia Endocrine/Autoimmune: reports: HyPOthyroidism Smoking Status: Never smoker History of Cancer?: No Exam General: Alert, Oriented x3 Dental: WNL Mouth Opening: Greater than 4 Fingerbreadths Neck Mobility: Normal Mallampati classification: I Thyromental Distance: greater than 6 cm Respiratory: Lungs clear Cardiovascular: Regular rate Plan Anesthesia Type: General, Transverse Abdominis Plane (TAP) Block (if open procedure) Consent for Procedure(s) Verified and Reviewed: Yes Code Status: Attempt Resuscitation ASA classification: 2-Mild systemic disease Is this case an emergency?: Yes
[2020-03-22] MEDS ORDERED: BUPIVACAINE 0.5% PF 30 ML VIAL INFIL ONE ×2 (20:08→21:15)
[2020-03-22] MEDS ORDERED: LIDOCAINE MPF 2%-EPI 1:200000 20 ML VIAL SUBQ ONE ×2 (20:09→21:15)
[2020-03-22] MEDS ORDERED: BUPIVACAINE 0.5% PF 30 ML VIAL ONE (20:13)
[2020-03-22] MEDS ORDERED: LIDOCAINE 2%-EPI 1:100000 20 ML MDV ONE (20:13)
[2020-03-22] MEDS ORDERED: LIDOCAINE-MPF 2% 5 ML VIAL ONE (20:34)
[2020-03-22] MEDS ORDERED: fentaNYL 100 MCG/2 ML VIAL ONE ×2 (20:34→22:18)
[2020-03-22] MEDS ORDERED: MIDAZOLAM 2 MG/2 ML VIAL ONE (20:34)
[2020-03-22] MEDS ORDERED: PROPOFOL 200 MG/20 ML VIAL IVP ONE ×2 (20:34→21:12)
[2020-03-22] MEDS ORDERED: ROCURONIUM 50 MG/5 ML VIAL ONE (20:34)
[2020-03-22] MEDS ORDERED: DEXAMETHASONE 4 MG/ML VIAL ONE (21:10)
[2020-03-22] MEDS ORDERED: KETOROLAC 30 MG/ML VIAL ONE (21:10)
[2020-03-22] MEDS ORDERED: ONDANSETRON 4 MG/2 ML VIAL ONE (21:10)
[2020-03-22] MEDS ORDERED: NALOXONE 0.4 MG/ML VIAL IVP PRN (21:24)
[2020-03-22] MEDS ORDERED: ePHEDrine 50 MG/ML VIAL IVP PRN (21:24)
[2020-03-22] MEDS ORDERED: ONDANSETRON 4 MG/2 ML VIAL IVP PRN ×2 (21:24→21:41)
[2020-03-22] MEDS ORDERED: MORPHINE 2 MG/ML CARPUJECT IVP PRN (21:24)
[2020-03-22] MEDS ORDERED: fentaNYL 100 MCG/2 ML VIAL IVP PRN (21:24)
[2020-03-22] MEDS ORDERED: HYDROmorphone 0.5 MG/0.5 ML SYRINGE IVP PRN ×2 (21:24→21:47)
[2020-03-22] MEDS ORDERED: METOCLOPRAMIDE 10 MG/2 ML VIAL IVP PRN (21:24)
[2020-03-22] MEDS ORDERED: ATROPINE ABBOJECT 1 MG/10 ML SYRINGE IVP PRN (21:24)
[2020-03-22] MEDS ORDERED: ACETAMINOPHEN 1,000 MG/100 ML 100 ML IV ONE (21:27)
--- NOTE | 2020-03-22 21:34 | OPERATIVE REPORT ---
Operative Report - General Procedure Date: 03/22/20 Planned Procedure: Laparoscopy with drainage of pelvic abscess Pre-Op Diagnosis: Diverticular pelvic abscess not amenable to image guided drainage Procedure Performed: Laparoscopy with lysis of adhesions and drainage of pelvic abscess Post Op Diagnosis: Diverticular abscess with associated pelvic phlegmon - Procedure Note Primary Surgeon: Darrian Anesthesia Provider: SUPRIYA Dominguez Anesthesia Technique: General ET tube, Local Pathology: Culture of intraperitoneal abscess Estimated Blood Loss (mL): 10 Drain/Tube Type: Avinash drain (19 Congolese Avinash drain in the pelvic abscess cavity) Findings: Pelvic phlegmon with dense omental adhesions Frankly purulent abscess contents. No evidence of free perforation of stool Complications: None apparent - Other Other Information/Narrative: After obtaining informed consent, the patient is brought to the operating room placed in the supine position on the operating table. Following successful induction of general endotracheal anesthesia, appropriate padding of all bony prominences, and placement of appropriate monitors, the abdomen was prepped and draped in the standard surgical fashion. A timeout was held per scope protocol. All elements of the surgical safety checklist were followed before, during, and after the procedure. Following infiltration with local anesthetic create a field block, an incision was created superior to the umbilicus and carried down through the skin and subcutaneous tissue. The abdomen was entered directly using a 15 blade scalpel. A 12 mm blunt Arana balloon trocar was placed in the abdominal cavity and it was insufflated to 15 mils mercury pressure.2 more trochars were placed in the right upper and left upper quadrants. The pelvis was visualized as well as an associated large phlegmon and omental attachments. The omentum was carefully peeled from the top of the phlegmon. This required painstaking use of the LigaS ure device to avoid tearing any of the bowel that the omentum was attached to. Significant lysis of adhesions was required just to identify the planes between the bowel loops so that they might be entered to provide access to the abscess cavity. No attempt was made to separate all of the bowel loops completely due to the risk of bowel injury in this inflammatory field. Using a blunt probe, the edges of the bowel loops were very gently allowing window of access into the abscess cavity that was carefully developed medially for a complete distance of approximately 3 cm. The skin directly over this area in the pelvis was anesthetized with local anesthetic and a 19 Congolese Avinash drain was passed through this area and down into the abdominal cavity. This drain was fed into the abscess cavity and then sewn into place in the abdominal wall. The contents of the abscess cavity were then aspirated through the drain and sent for culture. The cavity was then irrigated with warm saline solution and aspirated free of all fluid and particulate matter. It is notable that it was frankly necrotic and very foul-smelling.The abdomen was then irrigated with approximately 1 L of warm saline. It was aspirated free of all fluid and particulate matter. The entire wound was checked for hemostasis. When we were satisfied that all was clean and dry, the trochars were removed under direct vision. The abdomen desufflated and the camera removed. The umbilical incision was reapproximated with 0 Vicryl sutures and nylon sutures were placed in all of the skin incisions. All sponge, needle, and instrument counts were correct at the conclusion of the case. The patient was allowed to wake from anesthesia without difficulty and taken to the postanesthesia care unit in good condition.
[2020-03-22] MEDS ORDERED: GLYCOPYRROLATE 1 MG/5 ML VIAL ONE (21:40)
[2020-03-22] MEDS ORDERED: NEOSTIGMINE 1 MG/1 ML 10 ML MDV ONE (21:40)
[2020-03-22] MEDS ORDERED: oxyCODONE 5 MG TABLET PO PRN (21:41)
[2020-03-22] MEDS ORDERED: LACTATED RINGERS 400 ML IV ONE (21:44)
[2020-03-22] MEDS ORDERED: ACETAMINOPHEN 325 MG TABLET PO SCH (22:00)
[2020-03-22] MEDS ORDERED: PIPERACILLIN/TAZOBACTAM 3.375 GM in SODIUM CHLORIDE 0.9% MINIBAG 100 ML IV SCH (22:00)
[2020-03-22] MEDS ORDERED: SODIUM CHLORIDE 0.9% 1,000 ML IV SCH (22:00)
[2020-03-22] MEDS ORDERED: LACTATED RINGERS 1,000 ML IV SCH (22:00)
--- NOTE | 2020-03-22 22:16 | ANESTHESIA POST OP EVALUATION ---
Anesthesia Post Eval - Post Anesthesia Eval Vitals: Last Vital Signs Temp 36.4 C L 03/22/20 22:15 Pulse 56 L 03/22/20 22:15 Resp 16 03/22/20 22:15 BP 141/93 H 03/22/20 22:15 Pulse Ox 100 03/22/20 22:15 CV Function Including HR & BP: positive: Stable Pain Control: positive: Satisfactory Nausea & Vomiting: positive: Negative Mental Status: positive: Patient Participates Respiratory Status: Airway Patent Hydration Status: Satisfactory Anesthesia Complications: positive: None
[2020-03-22] MEDS: LACTATED RINGERS 1,000 ML IV SCH (22:39)
[2020-03-23] MEDS: ACETAMINOPHEN 325 MG TABLET PO SCH ×6 (00:19→21:06)
[2020-03-23] MEDS: PIPERACILLIN/TAZOBACTAM 3.375 GM in SODIUM CHLORIDE 0.9% MINIBAG 100 ML IV SCH ×3 (02:52→19:26)
[2020-03-23 06:02] LABS: BASOPHILS % (AUTO) 0.2 %; EOSINOPHILS # (AUTO) 0.1 10^3/uL (0.0-0.7); EOSINOPHILS % (AUTO) 0.5 %; HGB - HEMOGLOBIN 12.8 g/dL (14.0-18.0); LYMPHOCYTES # (AUTO) 0.6 10^3/uL (1.5-3.5); LYMPHOCYTES % (AUTO) 3.9 %; MEAN CORPUSCULAR HEMOGLOBIN 29.9 pg (27.0-31.0); MEAN CORPUSCULAR HGB CONC 32.6 g/dL (32.0-36.0); MEAN CORPUSCULAR VOLUME 91.8 fL (80.0-94.0); MEAN PLATELET VOLUME 10.4 fL (7.4-11.4); MONOCYTES # (AUTO) 0.7 10^3/uL (0.0-1.0); MONOCYTES % (AUTO) 4.6 %; NEUTROPHILS # (AUTO) 14.5 10^3/uL (1.5-6.6); NEUTROPHILS % (AUTO) 90.4 %; PLT - PLATELET COUNT 336 10^3/uL (130-450); RED BLOOD COUNT 4.28 10^6/uL (4.70-6.10); RED CELL DISTRIBUTION WIDTH 11.5 % (12.0-15.0); WHITE BLOOD COUNT 16.1 x10^3/uL (4.8-10.8)
[2020-03-23] MEDS: PANTOPRAZOLE 40 MG TABLET PO SCH (06:02)
[2020-03-23 06:14] LABS: ALBUMIN 3.2 g/dL (3.2-5.5); ALBUMIN/GLOBULIN RATIO 0.9 (1.0-2.2); ALKALINE PHOSPHATASE 48 IU/L (42-121); ALT ALANINE AMINOTRANSFERASE < 10 IU/L (10-60); AST ASPARTATE AMINOTRANSFERASE 12 IU/L (10-42); BILIRUBIN,TOTAL 0.8 mg/dL (0.2-1.0); BUN - BLOOD UREA NITROGEN 24 mg/dL (6-20); CALCIUM 8.5 mg/dL (8.5-10.3); CARBON DIOXIDE - CO2 22 mmol/L (21-32); CHLORIDE 103 mmol/L (101-111); CREATININE 1.4 mg/dL (0.6-1.2); GLUCOSE 120 mg/dL (70-100); TOTAL PROTEIN 6.8 g/dL (6.7-8.2)
[2020-03-23] MEDS: KETOROLAC 15 MG/ML VIAL IVP PRN (08:44)
[2020-03-23] MEDS: polyethylene glycoL 3350 17 GM PACKET PO SCH ×2 (08:44→21:07)
[2020-03-23] MEDS: ENOXAPARIN 40 MG/0.4 ML SYRINGE SUBQ SCH (08:44)
--- NOTE | 2020-03-23 16:59 | PROVIDER PROGRESS NOTE ---
Subjective - General Admit Date: 03/22/20 Procedure Date: 03/22/20 Post Op Days: 1 Procedure Performed: Laparoscopic drainage of peritoneal abscess - Review of Systems Wound/Incisions: positive: Dressing dry and intact Drain Type: Avinash - murky serosanguinous fluid General: positive: Fatigue HEENT: positive: No symptoms, Headaches, Visual changes Pulmonary: positive: No symptoms Cardiovascular: positive: No symptoms Gastrointestinal: positive: Flatus, Other (2 small diarrhea stools). negative: Nausea, Vomiting Musculoskeletal: positive: No symptoms Skin: positive: No symptoms All Other Systems: positive: Reviewed and negative - Other Other Information/Narrative: Afebrile Reports pain is controlled. WBCs up today as expected after abscess drainage. Culture shows gram +cocci. Her remains on Zosyn. Anxious to go home. Awaiting culture and plan is to then discharge with oral antibiotics and drain in place. Objective - Patient Data Vital Signs: Vital Signs x48h Temp Pulse Pulse Resp BP Pulse Ox 03/23/20 15:47 36.5 C 74 16 97 03/23/20 15:37 36.5 C 70 24 106/60 96 03/23/20 12:02 37 C 76 16 105/92 H 96 Weight: Weight 03/21/20 03/22/20 03/23/20 23:59 23:59 23:59 Weight (kg) 88 kg Intake & Output: Intake and Output Totals x24h 03/21/20 03/22/20 03/23/20 23:59 23:59 23:59 Intake Total 100 820 Output Total 175 Balance 100 645 - Lab Results Lab Results: 03/23/20 05:37 03/23/20 05:37 Other Lab Results: Lab Results x24hrs 03/23/20 03/23/20 Range/Units 05:37 05:37 WBC 16.1 H (4.8-10.8) x10^3/uL RBC 4.28 L (4.70-6.10) 10^6/uL Hgb 12.8 L (14.0-18.0) g/dL Hct 39.3 L (42.0-52.0) % MCV 91.8 (80.0-94.0) fL MCH 29.9 (27.0-31.0) pg MCHC 32.6 (32.0-36.0) g/dL RDW 11.5 L (12.0-15.0) % Plt Count 336 (130-450) 10^3/uL MPV 10.4 (7.4-11.4) fL Neut # (Auto) 14.5 H (1.5-6.6) 10^3/uL Lymph # (Auto) 0.6 L (1.5-3.5) 10^3/uL [place] # (Auto) 0.7 (0.0-1.0) 10^3/uL Eos # (Auto) 0.1 (0.0-0.7) 10^3/uL Baso # (Auto) 0.0 (0.0-0.1) 10^3/uL Absolute Nucleated RBC 0.00 x10^3/uL Nucleated RBC % 0.0 /100WBC Sodium 135 (135-145) mmol/L Potassium 4.3 (3.5-5.0) mmol/L Chloride 103 (101-111) mmol/L Carbon Dioxide 22 (21-32) mmol/L Anion Gap 10.0 (6-13) BUN 24 H (6-20) mg/dL Creatinine 1.4 H (0.6-1.2) mg/dL Estimated GFR (MDRD) 52 L (>89) Glucose 120 H (70-100) mg/dL Calcium 8.5 (8.5-10.3) mg/dL Total Bilirubin 0.8 (0.2-1.0) mg/dL AST 12 (10-42) IU/L ALT < 10 L (10-60) IU/L Alkaline Phosphatase 48 (42-121) IU/L Total Protein 6.8 (6.7-8.2) g/dL Albumin 3.2 (3.2-5.5) g/dL Globulin 3.6 (2.1-4.2) g/dL Albumin/Globulin Ratio 0.9 L (1.0-2.2) - Current Medications Current Medications: Current Medications Generic Name Dose Route Start Last Admin Trade Name Freq PRN Reason Stop Dose Admin Acetaminophen 650 mg 03/23/20 01:00 03/23/20 11:56 Acetaminophen 325 Mg Tablet PO 650 mg Q4HR FARZANA Administration Enoxaparin Sodium 40 mg 03/23/20 09:00 03/23/20 08:44 Enoxaparin 40 Mg/0.4 Ml Syringe SUBQ 40 mg DAILY FARZANA Administration Lactated Ringer's 1,000 mls @ 50 mls/hr 03/22/20 22:00 03/22/20 22:39 Lr IV 50 mls/hr .Q20H FARZANA Administration Piperacillin Sod/Tazobactam 100 mls @ 25 mls/hr 03/23/20 03:00 03/23/20 11:57 Sod 3.375 gm/ Sodium Chloride IV 25 mls/hr Q8H FARZANA Administration Ketorolac Tromethamine 15 mg 03/22/20 21:41 03/23/20 08:44 Ketorolac 15 Mg/Ml Vial IVP 03/27/20 21:40 15 mg Q6HR PRN Administration PAIN Pantoprazole Sodium 40 mg 03/23/20 07:00 03/23/20 06:02 Pantoprazole 40 Mg Tablet PO 40 mg QDAC FARZANA Administration Polyethylene Glycol 17 gm 03/23/20 09:00 03/23/20 08:44 Polyethylene Glycol 3350 17 Gm Packet PO 17 gm BID FARZANA Administration ABX Reporting Has patient been on IV antibiotics over the past 48 hours?: Yes Impression/Plan - Problem List Problem List: Pelvic abscess secondary to sigmoid diverticulitis and contained perforation. Continue Zosyn for now. Hopefully we will have culture results to work with tomorrow. Recheck labs in the AM.
[2020-03-24] MEDS: ACETAMINOPHEN 325 MG TABLET PO SCH ×6 (00:34→21:51)
[2020-03-24] MEDS: PIPERACILLIN/TAZOBACTAM 3.375 GM in SODIUM CHLORIDE 0.9% MINIBAG 100 ML IV SCH ×2 (03:31→12:01)
[2020-03-24] MEDS: KETOROLAC 15 MG/ML VIAL IVP PRN (03:43)
[2020-03-24 05:37] LABS: HGB - HEMOGLOBIN 11.4 g/dL (14.0-18.0); MEAN CORPUSCULAR HEMOGLOBIN 29.8 pg (27.0-31.0); MEAN CORPUSCULAR HGB CONC 32.4 g/dL (32.0-36.0); MEAN CORPUSCULAR VOLUME 91.9 fL (80.0-94.0); MEAN PLATELET VOLUME 10.3 fL (7.4-11.4); RED BLOOD COUNT 3.83 10^6/uL (4.70-6.10); RED CELL DISTRIBUTION WIDTH 11.6 % (12.0-15.0); WHITE BLOOD COUNT 14.2 x10^3/uL (4.8-10.8)
[2020-03-24 05:46] LABS: ALBUMIN 3.1 g/dL (3.2-5.5); ALBUMIN/GLOBULIN RATIO 0.9 (1.0-2.2); BILIRUBIN,TOTAL 0.6 mg/dL (0.2-1.0); CALCIUM 8.4 mg/dL (8.5-10.3); CREATININE 1.3 mg/dL (0.6-1.2); TOTAL PROTEIN 6.5 g/dL (6.7-8.2)
[2020-03-24] MEDS: PANTOPRAZOLE 40 MG TABLET PO SCH (05:50)
[2020-03-24] MEDS: ENOXAPARIN 40 MG/0.4 ML SYRINGE SUBQ SCH (08:10)
[2020-03-24] MEDS: LACTATED RINGERS 1,000 ML IV SCH (08:12)
[2020-03-24] MEDS: polyethylene glycoL 3350 17 GM PACKET PO SCH ×2 (08:13→21:52)
[2020-03-24] MEDS ORDERED: LACTATED RINGERS 1,000 ML IV ONE (10:03)
[2020-03-24] MEDS ORDERED: IOVERSOL 320 100 ML VIAL IVP ONE (10:25)
[2020-03-24] MEDS ORDERED: IOVERSOL 320 50 ML VIAL ONE (10:30)
--- NOTE | 2020-03-24 12:23 | CT Report ---
PROCEDURE: Abdomen/Pelvis WO INDICATIONS: PELVIC ABSCESS TECHNIQUE: Noncontrast 5 mm thick sections acquired from the diaphragms to the symphysis. 5 mm coronal and sagi ttal reformats were then performed. For radiation dose reduction, the following was used: automated exposure control, adjustment of mA and/or kV according to patient size. COMPARISON: CT abdomen pelvis 03/22/2020 FINDINGS: Image quality: Excellent. ABDOMEN: Lung bases: Lung bases are clear. Heart size is normal. Solid organs: Liver and spleen are normal in size. Gallbladder is unremarkable Pancreas is normal in contours. No adrenal nodules. Kidneys are normal in size, without hydronephrosis or nephrolithia sis. Peritoneum and bowel: Colonic diverticula are present. There is mild thickening of the sigmoid colon, decreased compared to prior exam. There has been interval drain placement compared to 03/22/2020. Whi le minimal mesenteric fat stranding is present within the region of previous abscess. There is no res idual fluid collection identified. Nodes and vessels: No retroperitoneal or mesenteric adenopathy by size criteria. Aorta and inferior vena cava are normal in caliber. Miscellaneous: No ventral hernias. PELVIS: Genitourinary: Bladder wall thickness is normal. Miscellaneous: No inguinal hernias or adenopathy. Bones: No suspicious bony lesions. No vertebral body compression fractures. IMPRESSION: 1. Interval left lower quadrant drain placement without residual appearance of diverticular abscess f luid. 2. Persistent thickening of the sigmoid colon although improved compared to prior exam most consisten t with improving diverticulitis. Reviewed by: Aimee Bañuelos MD on 03/24/2020 12:22 PM PST Approved by: Aimee Bañuelos MD on 03/24/2020 12:22 PM PST Station ID: [id number]
--- NOTE | 2020-03-24 13:43 | PROVIDER PROGRESS NOTE ---
Subjective - General Admit Date: 03/22/20 Procedure Date: 03/22/20 Post Op Days: 2 Procedure Performed: Laparoscopic drainage of peritoneal abscess - Review of Systems Wound/Incisions: positive: Dressing dry and intact Drain Type: Avinash - murky serosanguinous fluid General: positive: Fatigue HEENT: positive: No symptoms, Headaches, Visual changes Pulmonary: positive: No symptoms Cardiovascular: positive: No symptoms Gastrointestinal: positive: Flatus, Other (2 small diarrhea stools). negative: Nausea, Vomiting Musculoskeletal: positive: No symptoms Skin: positive: No symptoms All Other Systems: positive: Reviewed and negative - Other Other Information/Narrative: Feeling sluggish this AM. Abdomen is sore but patient reports pain meds are adequate. Passing flatus. Repeat CT completed this morning Objective - Patient Data Vital Signs: Vital Signs x48h Temp Pulse Resp BP Pulse Ox 03/24/20 10:00 37 C 69 16 114/64 94 Weight: Weight 03/22/20 03/23/20 03/24/20 23:59 23:59 23:59 Weight (kg) 88 kg Intake & Output: Intake and Output Totals x24h 03/22/20 03/23/20 03/24/20 23:59 23:59 23:59 Intake Total 100 2876 1419.167 Output Total 205 1430 Balance 100 2671 -10.833 - Lab Results Lab Results: 03/24/20 05:10 03/24/20 05:10 Other Lab Results: Lab Results x24hrs 03/24/20 03/24/20 Range/Units 05:10 05:10 WBC 14.2 H (4.8-10.8) x10^3/uL RBC 3.83 L (4.70-6.10) 10^6/uL Hgb 11.4 L (14.0-18.0) g/dL Hct 35.2 L (42.0-52.0) % MCV 91.9 (80.0-94.0) fL MCH 29.8 (27.0-31.0) pg MCHC 32.4 (32.0-36.0) g/dL RDW 11.6 L (12.0-15.0) % Plt Count 299 (130-450) 10^3/uL MPV 10.3 (7.4-11.4) fL Sodium 138 (135-145) mmol/L Potassium 3.6 (3.5-5.0) mmol/L Chloride 105 (101-111) mmol/L Carbon Dioxide 25 (21-32) mmol/L Anion Gap 8.0 (6-13) BUN 22 H (6-20) mg/dL Creatinine 1.3 H (0.6-1.2) mg/dL Estimated GFR (MDRD) 56 L (>89) Glucose 113 H (70-100) mg/dL Calcium 8.4 L (8.5-10.3) mg/dL Total Bilirubin 0.6 (0.2-1.0) mg/dL AST 15 (10-42) IU/L ALT 10 (10-60) IU/L Alkaline Phosphatase 45 (42-121) IU/L Total Protein 6.5 L (6.7-8.2) g/dL Albumin 3.1 L (3.2-5.5) g/dL Globulin 3.4 (2.1-4.2) g/dL Albumin/Globulin Ratio 0.9 L (1.0-2.2) - Imaging Results Radiology Imaging: positive: Final report received - Current Medications Current Medications: Current Medications Generic Name Dose Route Start Last Admin Trade Name Freq PRN Reason Stop Dose Admin Acetaminophen 650 mg 03/23/20 01:00 03/24/20 12:10 Acetaminophen 325 Mg Tablet PO 650 mg Q4HR FARZANA Administration Enoxaparin Sodium 40 mg 03/23/20 09:00 03/24/20 08:10 Enoxaparin 40 Mg/0.4 Ml Syringe SUBQ 40 mg DAILY FARZANA Administration Lactated Ringer's 1,000 mls @ 50 mls/hr 03/22/20 22:00 03/24/20 08:12 Lr IV 50 mls/hr .Q20H FARZANA Administration Piperacillin Sod/Tazobactam 100 mls @ 25 mls/hr 03/23/20 03:00 03/24/20 12:01 Sod 3.375 gm/ Sodium Chloride IV 25 mls/hr Q8H FARZANA Administration Ketorolac Tromethamine 15 mg 03/22/20 21:41 03/24/20 03:43 Ketorolac 15 Mg/Ml Vial IVP 03/27/20 21:40 15 mg Q6HR PRN Administration PAIN Pantoprazole Sodium 40 mg 03/23/20 07:00 03/24/20 05:50 Pantoprazole 40 Mg Tablet PO 40 mg QDAC FARZANA Administration Polyethylene Glycol 17 gm 03/23/20 09:00 03/24/20 08:13 Polyethylene Glycol 3350 17 Gm Packet PO Not Given BID FARZANA - Physical Exam Wound/Incisions: positive: Healing well General Appearance: positive: No acute distress, Lethargic Eyes Bilateral: positive: Normal inspection, PERRL, EOMI Respiratory: positive: No respiratory distress, Breath sounds nml Cardiovascular: positive: Regular rate & rhythm Extremities: positive: No pedal edema Neurologic/Psychiatric: positive: Oriented x3 ABX Reporting Has patient been on IV antibiotics over the past 48 hours?: Yes Impression/Plan - Problem List Problem List: Diverticulitis with abscess 1. Repeat CT shows resolution of the abscess with drain in place 2. WBCs elevated but trending down 3. Cultures reveals woods sensitive E. coli. 4. Will stop Flagyl and Zosyn and switch to Cipro. 5. Consider removing dishcarge home in the AM with or without drain if all continues to go well.
[2020-03-24] MEDS: CIPROFLOXACIN 250 MG TABLET PO SCH ×2 (14:18→21:52)
[2020-03-25] MEDS: ACETAMINOPHEN 325 MG TABLET PO SCH ×4 (01:13→13:23)
[2020-03-25] MEDS: LACTATED RINGERS 1,000 ML IV SCH (04:51)
[2020-03-25] MEDS: PANTOPRAZOLE 40 MG TABLET PO SCH (06:00)
[2020-03-25] MEDS: polyethylene glycoL 3350 17 GM PACKET PO SCH (08:33)
[2020-03-25] MEDS: CIPROFLOXACIN 250 MG TABLET PO SCH (08:33)
[2020-03-25] MEDS: ENOXAPARIN 40 MG/0.4 ML SYRINGE SUBQ SCH (08:33)
[2020-03-25 10:59] LABS: BASOPHILS % (AUTO) 0.3 %; EOSINOPHILS # (AUTO) 0.3 10^3/uL (0.0-0.7); EOSINOPHILS % (AUTO) 2.7 %; HGB - HEMOGLOBIN 12.8 g/dL (14.0-18.0); LYMPHOCYTES # (AUTO) 1.5 10^3/uL (1.5-3.5); LYMPHOCYTES % (AUTO) 12.8 %; MEAN CORPUSCULAR HGB CONC 32.2 g/dL (32.0-36.0); MEAN CORPUSCULAR VOLUME 93.2 fL (80.0-94.0); MEAN PLATELET VOLUME 9.7 fL (7.4-11.4); MONOCYTES # (AUTO) 0.8 10^3/uL (0.0-1.0); MONOCYTES % (AUTO) 6.9 %; NEUTROPHILS # (AUTO) 9.2 10^3/uL (1.5-6.6); NEUTROPHILS % (AUTO) 76.8 %; PLT - PLATELET COUNT 342 10^3/uL (130-450); RED BLOOD COUNT 4.26 10^6/uL (4.70-6.10); RED CELL DISTRIBUTION WIDTH 11.8 % (12.0-15.0)
[2020-03-25 11:09] LABS: CALCIUM 9.1 mg/dL (8.5-10.3); CREATININE 1.1 mg/dL (0.6-1.2)
--- NOTE | 2020-03-25 13:11 | Discharge Plan ---
Discharge Plan Problem Reviewed?: Yes Disposition: Home, Self Care Condition: Stable Prescriptions: Ciprofloxacin [Cipro] 500 mg PO BID #14 tablet Diet: Regular Activity Restrictions: No Restrictions Shower Restrictions: No Driving Restrictions: No Assessment: Resolution of abscess and improvement in condition after laparaoscopic drainage No Smoking: If you smoke, Please STOP! Call for help. Follow-up with: Tariq Lane MD [Provider Admit Priv/Credential] -
--- NOTE | 2020-03-25 13:12 | DISCHARGE SUMMARY ---
Discharge Summary Admit Date: 03/22/20 Discharge Date: 03/25/20 Discharging Provider: Darrian Condition at Discharge: Stable Discharge Disposition: Home, Self Care - DIAGNOSES Admission Diagnoses: Perforated diverticulitis with abscess Discharge Diagnoses with Status of Each Condition: Improved - HPI History of Present Illness: 59-year-old gentleman with history of hypothyroidism, otherwise quite healthy. Has never had a colonoscopy. He has had about 2 weeks of left lower quadrant pain feeling like he might be constipated. He has tried a number of at home reliefs including castor oil, other laxatives and even an enema without any relief. He is at this point has watery small stools but persistent pressure. Has been on and off nauseous and thinks he had a fever a week ago. No history of abdominal surgeries. No sick contacts. No respiratory complaints. Says he doesn't feel "terrible" but is definitely not "myself". He has never been diagnosed with diverticulosis or diverticulitis. He has not had a similar episode in the past. He has known family history of colon cancer or inflammatory bowel disease. - CONSULTS | PROCEDURES Consultations: None Procedures: Laparoscopy with drainage of pelvic abscess - HOSPITAL COURSE Hospital Course: The patient was admitted and taken to the operating room for diagnostic laparoscopy with drainage of the pelvic abscess. The procedure was uneventful. At the time of the procedure the contents of the abscess were cultured and final cultures grew E. coli that was pansensitive. [facility] for [facility] con[facility] and supportive care. He was started on Zosyn until cultures were received and then antibiotics were changed to Cipro. Repeat CT of the abdomen pelvis revealed resolution of the abscess.Today he is not using any pain medications he is walking the halls unassisted and he is eating a regular diet. He is discharged to his home in the care of his friends and family discharge medications will include Cipro 500 mg twice daily and levothyroxine 75 mcg daily consistent with his preop medications. He will follow-up with my partner Dr. Tariq Denson in 1 week. He needs to be taught drain care prior to discharge as this drain will stay in place until he is seen by Dr. Lane. - ALLERGIES Allergies/Adverse Reactions: Allergies Allergy/AdvReac Type Severity Reaction Status Date / Time No Known Drug Allergies Allergy Verified 03/22/20 12:10 - MEDICATIONS Home Medications: Ambulatory Orders Medication Instructions Recorded Confirmed Levothyroxine [Synthroid] 75 mcg PO DAILY 03/22/20 03/22/20 Ciprofloxacin [Cipro] 500 mg PO BID #14 tablet 03/25/20 - PHYSICAL EXAM AT DISCHARGE General Appearance: positive: No acute distress, Alert Eyes Bilateral: positive: Normal inspection, PERRL, EOMI ENT: positive: ENT inspection nml, Pharynx nml, No signs of dehydration Neck: positive: Nml inspection, Thyroid nml, No JVD Respiratory: positive: Chest non-tender, No respiratory distress, Breath sounds nml Cardiovascular: positive: Regular rate & rhythm, No murmur Peripheral Pulses: positive: 1+ Abdomen: positive: Nml bowel sounds Skin: positive: Color nml Extremities: positive: Non-tender Neurologic/Psychiatric: positive: Oriented x3 - LABS Result Diagrams: 03/25/20 10:55 03/25/20 10:55 - DIAGNOSTIC IMAGING Diagnostic Imaging Results: Final report reviewed - QUALITY (Female Hip Fx Only) Was patient sent home on osteoporosis medication?: No - FOLLOW UP Follow Up: Dr. Jensen in 1 week - TIME SPENT Time Spent in Discharge (Minutes): 20
[2020-03-25 13:35] VITALS: BP 133/81
== END 2020-03-25 14:12 | disposition home or self-care (01) | DRG 335 ==
LOC: ED 12:06 → SDS 15:00 → MS2 21:41
PROVIDERS: ADMIT Surgery; ATTEND Surgery
PROC: 0DN Gastrointestinal System, Release (ICD-10-PCS; 2020-03-22)
PROC: 0W9G40Z Drainage of Peritoneal Cavity with Drainage Device, Percutaneous Endoscopic Approach (ICD-10-PCS; principal; 2020-03-22 18:00)
DX: K57.20 Diverticulitis of large intestine with perforation and abscess without bleeding (principal); K65.8 Other peritonitis; K66.0 Peritoneal adhesions (postprocedural) (postinfection); B96.20 Unspecified Escherichia coli [E. coli] as the cause of diseases classified elsewhere; E03.9 Hypothyroidism, unspecified; Z20.822 Contact with and (suspected) exposure to COVID-19; Z79.899 Other long term (current) drug therapy
CPT/HCPCS: 0202U; 36415; 74176; 74177; 80048; 80053; 81003; 82272; 83690; 84443; 85025; 85027; 87070; 87181; 87205; 96365; 99284; 99285; A9270; J0131; J1650; J7120; Q9967; 81001; 87086

== ENCOUNTER 2020-03-28 19:44 | Emergency (ER) | payer MEDICAID ==
[2020-03-28] MEDS ORDERED: ASPIRIN CHEW 81 MG TABLET PO STA (19:58)
--- NOTE | 2020-03-28 20:00 | ED Physician Documentation ---
PD HPI CHEST PAIN - Stated complaint Stated Complaint: chest px, left arm px, soa - Chief complaint Chief Complaint: Critical Care - History obtained from History obtained from: Patient - History of Present Illness Timing - onset: How many hours ago (10) Timing - onset during: Rest Timing - duration: Hours (10) Timing - details: Gradual onset Pain level max: 7 Pain level now: 1 Quality: Pressure, Tightness Location: Left chest Radiation: Other (L shoulder) Improved by: Rest Worsened by: Inspiration. No: Exertion, Eating, Movement, Palpation, Position Associated symptoms: No: Shortness of air, Diaphoresis, Nausea, Vomiting, Feeling faint / dizzy, General Weakness, Palpitations, Cough Similar symptoms before: Has not had sx before - Additional information Additional information: Patient recently had a diverticular abscess drained. JOVANA drain in place in the abdomen. no cardiac history Review of Systems Ten Systems: 10 systems reviewed and negative Constitutional: denies: Fever, Chills Ears: denies: Ear pain Nose: denies: Rhinorrhea / runny nose, Congestion Respiratory: denies: Cough GI: denies: Vomiting, Diarrhea Skin: denies: Rash Musculoskeletal: denies: Neck pain, Back pain Neurologic: denies: Focal weakness, Numbness, Headache PD PAST MEDICAL HISTORY - Past Medical History Past Medical History: Yes Cardiovascular: None Respiratory: Pneumonia Endocrine/Autoimmune: HyPOthyroidism - Past Surgical History Past Surgical History: No - Present Medications Home Medications: Ambulatory Orders Medication Instructions Recorded Confirmed Levothyroxine [Synthroid] 75 mcg PO DAILY 03/22/20 03/28/20 Ciprofloxacin [Cipro] 500 mg PO BID #14 tablet 03/25/20 03/28/20 - Allergies Allergies/Adverse Reactions: Allergies Allergy/AdvReac Type Severity Reaction Status Date / Time No Known Drug Allergies Allergy Verified 03/28/20 19:54 - Social History Does the pt smoke?: No Smoking Status: Never smoker Does the pt drink ETOH?: Yes Does the pt have substance abuse?: No PD ED PE NORMAL - Vitals Vital signs reviewed: Yes - General General: Alert and oriented X 3, No acute distress, Well developed/nourished - HEENT HEENT: PERRL, Moist mucous membranes - Neck Neck: Supple, no meningeal sign - Cardiac Cardiac: Other (tachycardic) - Respiratory Respiratory: No respiratory distress, Clear bilaterally - Abdomen Abdomen: Soft, Non tender, Non distended, Other (JOVANA drain in place, no signs of infection.) - Derm Derm: Warm and dry, No rash - Extremities Extremities: No edema, No calf tenderness / cord - Neuro Neuro: Alert and oriented X 3 - Psych Psych: Normal mood, Normal affect Results - Vitals Vitals: Vital Signs - 24 hr 03/28/20 03/28/20 03/28/20 19:49 20:26 21:00 Temperature 36.6 C 36.9 C Heart Rate 121 H 99 91 Respiratory 16 21 22 Rate Blood Pressure 147/92 H 153/86 H 134/81 H O2 Saturation 98 97 97 03/28/20 21:30 Temperature Heart Rate 89 Respiratory 22 Rate Blood Pressure 123/76 O2 Saturation 96 Oxygen O2 Source Room air - EKG (time done) 1946 Rate: Rate (enter#) (116) Rhythm: Sinus tachycardia [place]: Normal Intervals: Other (SC depression - II, aVF, v2-3) QRS: Normal Ischemia: Normal ST segments Compare to prior EKG: Old EKG unavailable 2004 Rate: Rate (enter#) (101) Rhythm: Sinus tachycardia Intervals: Normal SC QRS: Normal Ischemia: ST elevation c/w repol, Other (SC depression) Compare to prior EKG: Old EKG unavailable - Labs Labs: Laboratory Tests 03/28/20 03/28/20 03/28/20 20:05 20:05 20:05 WBC 18.6 H RBC 4.86 Hgb 14.4 Hct 43.3 MCV 89.1 MCH 29.6 MCHC 33.3 RDW 11.4 L Plt Count 456 H MPV 9.3 Neut # (Auto) 15.6 H Lymph # (Auto) 1.6 [place] # (Auto) 1.1 H Eos # (Auto) 0.1 Baso # (Auto) 0.1 Absolute Nucleated RBC 0.00 Nucleated RBC % 0.0 Sodium 136 Potassium 4.2 Chloride 103 Carbon Dioxide 22 Anion Gap 11.0 BUN 24 H Creatinine 1.1 Estimated GFR (MDRD) 68 L Glucose 133 H Calcium 9.9 Total Bilirubin 0.5 AST 32 ALT 31 Alkaline Phosphatase 70 Troponin I High Sens 11.6 Total Protein 8.2 Albumin 3.9 Globulin 4.3 H Albumin/Globulin Ratio 0.9 L Lipase 26 - Rads (name of study) cxr Radiology: Prelim report reviewed, EMP read contemporaneously, See rad report (Resolution of left-sided pneumonia. Mild bibasilar atelectasis versus scarring. ) ct pa Radiology: Prelim report reviewed, EMP read contemporaneously, See rad report (no PE. patchy bibasilar atelectasis) PD MEDICAL DECISION MAKING - ED course Complexity details: reviewed results, re-evaluated patient, considered differential, d/w patient ED course: No ST elevation MD, no aortic dissection, no PE, no tension pneumothorax, no aortic aneurysm 59-year-old male presents to the emergency department status post recent surgery for intra-abdominal abscess from diverticulitis. JOVANA drain in place. No signs of infection. Had left-sided chest pain and left shoulder pain today. EKG concerning for possible pericarditis. Negative troponin. Atelectasis on CT pulmonary angiogram. Discussed the case with Dr. Colmenares, general surgery who is okay with placing the patient on NSAIDs for possible pericarditis. Patient will be signed out to Dr. Maurer awaiting the repeat high-sensitivity troponin. Plan is to discharge the patient if it is negative. Patient can follow-up with his doctor for further care. Departure - Departure Clinical Impression: Chest pain Pericarditis Qualifiers: Pericarditis type: unspecified type Chronicity: acute Qualified Code(s): I30.9 - Acute pericarditis, unspecified Condition: Stable
[2020-03-28] MEDS ORDERED: IOVERSOL 320 100 ML VIAL IVP ONE ×2 (20:11→20:34)
[2020-03-28 20:14] LABS: BASOPHILS # (AUTO) 0.1 10^3/uL (0.0-0.1); BASOPHILS % (AUTO) 0.3 %; EOSINOPHILS # (AUTO) 0.1 10^3/uL (0.0-0.7); EOSINOPHILS % (AUTO) 0.4 %; HGB - HEMOGLOBIN 14.4 g/dL (14.0-18.0); LYMPHOCYTES # (AUTO) 1.6 10^3/uL (1.5-3.5); LYMPHOCYTES % (AUTO) 8.7 %; MEAN CORPUSCULAR HEMOGLOBIN 29.6 pg (27.0-31.0); MEAN CORPUSCULAR HGB CONC 33.3 g/dL (32.0-36.0); MEAN CORPUSCULAR VOLUME 89.1 fL (80.0-94.0); MEAN PLATELET VOLUME 9.3 fL (7.4-11.4); MONOCYTES # (AUTO) 1.1 10^3/uL (0.0-1.0); NEUTROPHILS # (AUTO) 15.6 10^3/uL (1.5-6.6); NEUTROPHILS % (AUTO) 83.6 %; PLT - PLATELET COUNT 456 10^3/uL (130-450); RED BLOOD COUNT 4.86 10^6/uL (4.70-6.10); RED CELL DISTRIBUTION WIDTH 11.4 % (12.0-15.0); WHITE BLOOD COUNT 18.6 x10^3/uL (4.8-10.8)
[2020-03-28] MEDS ORDERED: ASPIRIN CHEW 81 MG TABLET ONE (20:14)
--- NOTE | 2020-03-28 20:21 | XRAY Report ---
PROCEDURE: Chest 1 View X-Ray INDICATIONS: CHEST PAIN / EXAM ALREADY SHOT TECHNIQUE: One view of the chest was acquired. COMPARISON: 09/03/2018 FINDINGS: Surgical changes and devices: None. Lungs and pleura: No pleural effusions or pneumothorax. Resolution of left-sided pneumonia. Mild bib asilar atelectasis versus scarring. Mediastinum: Mediastinal contours appear normal. Heart size is normal. Bones and chest wall: No suspicious bony lesions. Overlying soft tissues appear unremarkable. IMPRESSION: Resolution of left-sided pneumonia. Mild bibasilar atelectasis versus scarring. Reviewed by: Jero Rodrigez MD on 03/28/2020 8:19 PM PST Approved by: Jero Rodrigez MD on 03/28/2020 8:19 PM PST Station ID: [id number]
[2020-03-28 20:27] LABS: ALBUMIN 3.9 g/dL (3.2-5.5); ALBUMIN/GLOBULIN RATIO 0.9 (1.0-2.2); BILIRUBIN,TOTAL 0.5 mg/dL (0.2-1.0); CALCIUM 9.9 mg/dL (8.5-10.3); CREATININE 1.1 mg/dL (0.6-1.2); TOTAL PROTEIN 8.2 g/dL (6.7-8.2)
--- NOTE | 2020-03-28 20:42 | CT Report ---
PROCEDURE: ANGIO CHEST W/WO INDICATIONS: chest pain, possible PE CONTRAST: IV CONTRAST: Optiray 320 ml: 80 PO CONTRAST: *NO PO CONTRAST TECHNIQUE: After the administration of intravenous contrast, 2 mm thick sections acquired from the pulmonary api ishan to the posterior costophrenic angles. 3-dimensional maximum intensity projection (MIP) coronal a nd sagittal reformats were then acquired through the thorax. For radiation dose reduction, the follow ing was used: automated exposure control, adjustment of mA and/or kV according to patient size. COMPARISON: CT abdomen and pelvis dated 03/22/2019 FINDINGS: Image quality: Excellent. Pulmonary arteries: Pulmonary arteries are normal in size, and demonstrate no intraluminal filling d efects to suggest central pulmonary embolism. Lungs and pleura: Patchy bibasilar atelectasis.. No pleural effusions or pneumothorax. Central and peripheral airways are patent. Mediastinum: Heart size is normal, without pericardial effusion. No mediastinal or hilar adenopathy . Thoracic aorta is normal in caliber and enhancement. Esophagus is normal in caliber, without hiat al hernia. Bones and chest wall: No suspicious bony lesions. Ribs and thoracic spine appear intact throughout. The thyroid is normal. No axillary or supraclavicular adenopathy. Abdomen: Visualized upper abdominal solid organs appear normal in the early arterial phase of enhanc ement. IMPRESSION: 1. No evidence pulmonary Raoul. Avis. 2. Patchy bibasilar atelectasis. Reviewed by: Jero Rodrigez MD on 03/28/2020 8:41 PM PST Approved by: Jero Rodrigez MD on 03/28/2020 8:41 PM PST Station ID: [id number]
--- NOTE | 2020-03-28 22:24 | ED Physician Documentation ---
ED Addendum - Addendum Addendum: 03/28/20 22:18 Patient endorsed to me by Dr. Rojo awaiting repeat troponin. He d/w Dr. Colmenares re: need for NSAIDs for pericarditis treatment. patient in NAD, asymptomatic at this time. 03/29/20 06:05 Second troponin was stable and so patient was discharged to follow up outpatient. bedside echo with trace pericardial effusion. normal cardiac wall motion. strict return precautions given. He will call from his postop follow up this week.
[2020-03-28 23:04] VITALS: BP 121/89
== END 2020-03-28 23:27 | disposition home or self-care (01) ==
LOC: ED 19:44
DX: R07.9 Chest pain, unspecified (principal); I30.9 Acute pericarditis, unspecified; Z98.890 Other specified postprocedural states
CPT/HCPCS: 36415; 71045; 71275; 80053; 83690; 84484; 85025; 93005; 99284; A9270; Q9967

== ENCOUNTER 2020-05-05 11:45 | Outpatient (CLI) | payer MEDICAID ==
[2020-05-05 14:56] LABS: BASOPHILS # (AUTO) 0.1 10^3/uL (0.0-0.1); BASOPHILS % (AUTO) 0.7 %; EOSINOPHILS # (AUTO) 0.2 10^3/uL (0.0-0.7); EOSINOPHILS % (AUTO) 2.3 %; HGB - HEMOGLOBIN 12.9 g/dL (14.0-18.0); LYMPHOCYTES # (AUTO) 2.1 10^3/uL (1.5-3.5); LYMPHOCYTES % (AUTO) 23.7 %; MEAN CORPUSCULAR HEMOGLOBIN 28.7 pg (27.0-31.0); MEAN CORPUSCULAR HGB CONC 31.5 g/dL (32.0-36.0); MEAN CORPUSCULAR VOLUME 91.1 fL (80.0-94.0); MEAN PLATELET VOLUME 11.5 fL (7.4-11.4); MONOCYTES # (AUTO) 0.5 10^3/uL (0.0-1.0); MONOCYTES % (AUTO) 6.2 %; NEUTROPHILS # (AUTO) 5.8 10^3/uL (1.5-6.6); NEUTROPHILS % (AUTO) 66.6 %; PLT - PLATELET COUNT 291 10^3/uL (130-450); RED CELL DISTRIBUTION WIDTH 12.3 % (12.0-15.0); WHITE BLOOD COUNT 8.7 x10^3/uL (4.8-10.8)
[2020-05-05 15:24] LABS: THYROID STIMULATING HORMONE 5.66 uIU/mL (0.34-5.60)
[2020-05-05 15:27] LABS: ALBUMIN 3.9 g/dL (3.2-5.5); BILIRUBIN,TOTAL 0.7 mg/dL (0.2-1.0); CALCIUM 9.7 mg/dL (8.5-10.3); CREATININE 1.2 mg/dL (0.6-1.2); POTASSIUM 4.6 mmol/L (3.5-5.0); TOTAL PROTEIN 7.7 g/dL (6.7-8.2)
[2020-05-06 12:32] LABS: HEPATITIS A IGM NON-REACTIVE (NON-REACTIVE); HEPATITIS B CORE ANTIBODY IGM NON-REACTIVE (NON-REACTIVE); HEPATITIS B SURFACE ANTIGEN NON-REACTIVE (NON-REACTIVE); HEPATITIS C ANTIBODY NON-REACTIVE (NON-REACTIVE)
[2020-05-07 11:56] LABS: ANA SCREEN NEGATIVE (NEGATIVE)
[2020-05-07 13:45] LABS: ALBUMIN 3.8 g/dL (3.8-4.8); ALPHA 1 GLOBULIN 0.4 g/dL (0.2-0.3); ALPHA 2 GLOBULIN 0.9 g/dL (0.5-0.9); BETA 1 GLOBULIN 0.4 g/dL (0.4-0.6); BETA 2 GLOBULIN 0.4 g/dL (0.2-0.5)
== END 2020-05-05 11:46 | disposition home or self-care (01) ==
LOC: LAB.S 11:45
PROVIDERS: ATTEND Internal Medicine
DX: M25.50 Pain in unspecified joint (principal); E03.9 Hypothyroidism, unspecified; G62.9 Polyneuropathy, unspecified
CPT/HCPCS: 36415; 80050; 80074; 81599; 82607; 84155; 84165; 84439; 85651; 86038; 86334

== ENCOUNTER 2020-05-07 08:00 | Outpatient (CLI) | payer MEDICAID ==
--- NOTE | 2020-05-07 12:29 | XRAY Report ---
PROCEDURE: Chest 2 View X-Ray INDICATIONS: SHORTNESS OF BREATH TECHNIQUE: 2 view(s) of the chest. COMPARISON: None. FINDINGS: Surgical changes and devices: None. Lungs and pleura: No pleural effusions or pneumothorax. Lungs are clear. Mediastinum: Mediastinal contours are normal. Heart size is normal. Bones and chest wall: No suspicious bony abnormalities. Soft tissues appear unremarkable. IMPRESSION: No acute cardiopulmonary pathology. Reviewed by: Holland Harrison MD on 05/07/2020 12:27 PM [facility] Approved by: Holland Harrison MD on 05/07/2020 12:27 PM [facility] Station ID: [id number]
== END 2020-05-07 23:59 | disposition home or self-care (01) ==
LOC: DI.S 08:00
PROVIDERS: ATTEND Physician Assistant Medical
DX: R06.02 Shortness of breath (principal)

== ENCOUNTER 2021-08-22 08:08 | Outpatient (CLI) | payer MEDICAID ==
[2021-08-22 14:27] LABS: BASOPHILS # (AUTO) 0.1 10^3/uL (0.0-0.1); BASOPHILS % (AUTO) 0.8 %; EOSINOPHILS # (AUTO) 0.3 10^3/uL (0.0-0.7); EOSINOPHILS % (AUTO) 4.3 %; HCT - HEMATOCRIT 46.4 % (42.0-52.0); HGB - HEMOGLOBIN 15.2 g/dL (14.0-18.0); LYMPHOCYTES # (AUTO) 2.2 10^3/uL (1.5-3.5); LYMPHOCYTES % (AUTO) 30.4 %; MEAN CORPUSCULAR HEMOGLOBIN 30.6 pg (27.0-31.0); MEAN CORPUSCULAR HGB CONC 32.8 g/dL (32.0-36.0); MEAN CORPUSCULAR VOLUME 93.4 fL (80.0-94.0); MEAN PLATELET VOLUME 11.2 fL (7.4-11.4); MONOCYTES # (AUTO) 0.6 10^3/uL (0.0-1.0); MONOCYTES % (AUTO) 7.6 %; NEUTROPHILS # (AUTO) 4.1 10^3/uL (1.5-6.6); NEUTROPHILS % (AUTO) 56.5 %; PLT - PLATELET COUNT 231 10^3/uL (130-450); RED BLOOD COUNT 4.97 10^6/uL (4.70-6.10); RED CELL DISTRIBUTION WIDTH 12.3 % (12.0-15.0); WHITE BLOOD COUNT 7.2 x10^3/uL (4.8-10.8)
[2021-08-22 15:03] LABS: ALBUMIN 4.3 g/dL (3.2-5.5); ALBUMIN/GLOBULIN RATIO 1.5 (1.0-2.2); ALKALINE PHOSPHATASE 50 IU/L (42-121); ALT ALANINE AMINOTRANSFERASE 14 IU/L (10-60); AST ASPARTATE AMINOTRANSFERASE 20 IU/L (10-42); BILIRUBIN,TOTAL 0.7 mg/dL (0.2-1.0); BUN - BLOOD UREA NITROGEN 23 mg/dL (6-20); CALCIUM 9.4 mg/dL (8.5-10.3); CARBON DIOXIDE - CO2 28 mmol/L (21-32); CHLORIDE 105 mmol/L (101-111); CHOL/HDL RATIO 5.3 (<5.0); CHOLESTEROL 239 mg/dL; CREATININE 1.2 mg/dL (0.6-1.2); GFR - MDRD 61 (>89); GLUCOSE 95 mg/dL (70-100); HDL CHOLESTEROL 45 mg/dL; LDL CHOLESTEROL,CALCULATED 140 mg/dL; LDL/HDL RATIO 3.1 (<3.6); POTASSIUM 4.4 mmol/L (3.5-5.0); SODIUM 141 mmol/L (135-145); TOTAL PROTEIN 7.1 g/dL (6.7-8.2); TRIGLYCERIDES 271 mg/dL; VLDL CHOLESTEROL 54 mg/dL
[2021-08-22 15:12] LABS: THYROID STIMULATING HORMONE 11.24 uIU/mL (0.34-5.60)
[2021-08-22 16:46] LABS: FREE T4 (FREE THYROXINE) 0.67 ng/dL (0.58-1.64)
== END 2021-08-22 08:09 | disposition home or self-care (01) ==
LOC: LAB.S 08:08
PROVIDERS: ATTEND Registered Nurse
DX: Z00.00 Encounter for general adult medical examination without abnormal findings (principal); Z12.5 Encounter for screening for malignant neoplasm of prostate; E03.9 Hypothyroidism, unspecified; E78.5 Hyperlipidemia, unspecified
CPT/HCPCS: 36415; 80050; 80061; 83721; 84153; 84439

== ENCOUNTER 2022-12-13 07:25 | Outpatient (CLI) | payer MEDICAID ==
[2022-12-13 15:03] LABS: BASOPHILS # (AUTO) 0.1 10^3/uL (0.0-0.1); BASOPHILS % (AUTO) 0.8 %; EOSINOPHILS # (AUTO) 0.4 10^3/uL (0.0-0.7); EOSINOPHILS % (AUTO) 5.9 %; HCT - HEMATOCRIT 44.2 % (42.0-52.0); HGB - HEMOGLOBIN 14.4 g/dL (14.0-18.0); LYMPHOCYTES % (AUTO) 28.6 %; MEAN CORPUSCULAR HEMOGLOBIN 30.3 pg (27.0-31.0); MEAN CORPUSCULAR HGB CONC 32.6 g/dL (32.0-36.0); MEAN CORPUSCULAR VOLUME 92.9 fL (80.0-94.0); MEAN PLATELET VOLUME 11.2 fL (7.4-11.4); MONOCYTES # (AUTO) 0.6 10^3/uL (0.0-1.0); MONOCYTES % (AUTO) 8.5 %; NEUTROPHILS # (AUTO) 3.9 10^3/uL (1.5-6.6); NEUTROPHILS % (AUTO) 55.9 %; PLT - PLATELET COUNT 213 10^3/uL (130-450); RED BLOOD COUNT 4.76 10^6/uL (4.70-6.10); RED CELL DISTRIBUTION WIDTH 12.1 % (12.0-15.0); WHITE BLOOD COUNT 7.1 x10^3/uL (4.8-10.8)
[2022-12-13 16:26] LABS: ALBUMIN 4.3 g/dL (3.2-5.5); ALBUMIN/GLOBULIN RATIO 1.9 (1.0-2.2); ALKALINE PHOSPHATASE 49 IU/L (42-121); ALT ALANINE AMINOTRANSFERASE 9 IU/L (10-60); AST ASPARTATE AMINOTRANSFERASE 16 IU/L (10-42); BILIRUBIN,TOTAL 0.5 mg/dL (0.2-1.0); BUN - BLOOD UREA NITROGEN 23 mg/dL (6-20); CALCIUM 9.4 mg/dL (8.5-10.3); CARBON DIOXIDE - CO2 28 mmol/L (21-32); CHLORIDE 109 mmol/L (101-111); CHOLESTEROL 228 mg/dL; CREATININE 1.1 mg/dL (0.6-1.3); GFR - MDRD 67 (>89); GLUCOSE 96 mg/dL (74-104); POTASSIUM 4.6 mmol/L (3.5-4.5); SODIUM 141 mmol/L (135-145); TOTAL PROTEIN 6.6 g/dL (6.4-8.9); TRIGLYCERIDES 157 mg/dL (48-352); VLDL CHOLESTEROL 31 mg/dL
[2022-12-13 21:43] LABS: CHOL/HDL RATIO 5.2 (<5.0); HDL CHOLESTEROL 44 mg/dL; LDL CHOLESTEROL,CALCULATED 153 mg/dL; LDL/HDL RATIO 3.5 (<3.6)
== END 2022-12-13 07:26 | disposition home or self-care (01) ==
LOC: LAB.S 07:25
PROVIDERS: ATTEND Registered Nurse
DX: E78.5 Hyperlipidemia, unspecified (principal); Z79.899 Other long term (current) drug therapy; E03.9 Hypothyroidism, unspecified
CPT/HCPCS: 36415; 80053; 80061; 83721; 85025

== ENCOUNTER 2023-01-12 08:00 | Outpatient (CLI) | payer MEDICAID ==
--- NOTE | 2023-01-12 14:14 | XRAY Report ---
PROCEDURE: Hand 3 View LT INDICATIONS: CONTUSION ON LEFT HAND TECHNIQUE: 3 views of the hand(s) acquired. COMPARISON: None. FINDINGS: Bones: No fractures or dislocations. No suspicious bony lesions. Prominent degenerative arthritis involving the second MCP joint. Degenerative arthritis involving the fifth finger PIP joint. Soft tissues: No suspicious soft tissue calcifications or masses. IMPRESSION: No acute bony abnormality. Degenerative arthritis. Reviewed by: Jero Rodrigez MD on 01/12/2023 2:13 PM PST Approved by: Jero Rodrigez MD on 01/12/2023 2:13 PM PST Station ID: [id number]
== END 2023-01-12 23:59 | disposition home or self-care (01) ==
LOC: DI.S 08:00
PROVIDERS: ATTEND Physician Assistant Medical
DX: M19.042 Primary osteoarthritis, left hand (principal)